=== PATIENT | female | born 1940 | race Caucasian/White ===

== ENCOUNTER 2017-06-23 10:17 | Inpatient (IN) | payer OTHER ==
[2017-06-07 12:04] VITALS: BMI 25.0
--- NOTE | 2017-06-07 12:40 | PAT Medication Instructions ---
Service Date Jun 07, 2017. Current Home Medication List Aspirin (Aspirin Ec), 81 MG PO QPM Bimatoprost (Lumigan), 1 DROPS OP HS Cholecalciferol (Vitamin D3), 1 CAP PO QD@ 1200 Glipizide-Metformin Hcl (Glipizide/Metformin Hcl), 1 TAB PO BID Glipizide-Metformin Hcl (Glipizide/Metformin Hcl), 2 TABS PO QDD Lisinopril/Hctz (Prinzide 20-25MG), 1 TAB PO QDL Melatonin (Melatonin Maximum Strengt), 2 TAB PO HS Naproxen (Aleve), 220 MG PO TID PRN for Pain or Fever Ranitidine (Zantac), 150 MG PO QPM Simvastatin (Zocor), 40 MG PO QPM Vitamins C & E (Vitamin C), 1 CAP PO QF@1200 Medication Instructions For Your Scheduled Surgery - Hold the following medications 48 hours prior to surgery: Glipizide-Metformin Hcl (Glipizide/Metformin Hcl), 1 TAB PO BID Glipizide-Metformin Hcl (Glipizide/Metformin Hcl), 2 TABS PO QDD - Hold the following medications the morning of surgery: Naproxen (Aleve), 220 MG PO TID PRN for Pain or Fever (otherwise okay to continue per surgeon) Lisinopril/Hctz (Prinzide 20-25MG), 1 TAB PO QDL Cholecalciferol (Vitamin D3), 1 CAP PO QD@ 1200 Vitamins C(Vitamin C), 1 CAP PO QF@1200 - Take the following medications as scheduled the night before surgery: Melatonin (Melatonin Maximum Strengt), 2 TAB PO HS Ranitidine (Zantac), 150 MG PO QPM Simvastatin (Zocor), 40 MG PO QPM Aspirin (Aspirin Ec), 81 MG PO QPM Bimatoprost (Lumigan), 1 DROPS OP HS nothing to eat or drink after midnight If you have any questions please call us at [phone] or [phone] or [phone]
--- NOTE | 2017-06-07 13:29 | DIAGNOSTIC IMAGING REPORT ---
CHEST PREADMISSION(PA/LAT) CLINICAL HISTORY: PAT preoperative evaluation COMPARISON STUDY: No previous studies for comparison. FINDINGS: The bones soft tissues and hemidiaphragms are normal. The cardiomediastinal silhouette is normal. The lungs are clear. The pulmonary vasculature is normal. IMPRESSION: Negative chest. The above report was generated using voice recognition software. It may contain grammatical, syntax or spelling errors. Electronically signed by: Lucio Walker M.D. 06/07/2017 1:28 PM Dictated Date/Time: 06/07/2017 1:27 PM
[2017-06-07 13:31] LABS: BASO ABS # 0.08 K/uL (0-0.2); COMPLETE YES; EOS % 2.4 %; HEMATOCRIT 36.8 % (37-47); IG% 0.2 %; LYMPH % 39.4 %; LYMPH ABS # 3.22 K/uL (1.2-3.4); MEAN CELL VOLUME 93.4 fL (80-100); MEAN CORPUSCULAR HGB CONC 34.2 g/dl (32-36); MONO % 7.6 %; NEUT % 49.4 %; PLATELET COUNT 296 K/uL (130-400); RED BLOOD COUNT 3.94 M/uL (4.2-5.4); WHITE BLOOD COUNT 8.18 K/uL (4.8-10.8)
[2017-06-07 13:37] LABS: URINE APPEARANCE CLEAR (CLEAR); URINE BILIRUBIN NEG (NEG); URINE COLOR YELLOW; URINE NITRITE NEG (NEG); URINE PH 7.5 (4.5-7.5); URINE SPECIFIC GRAVITY 1.012 (1.000-1.030); UROBILINOGEN NEG (NEG); ZZUR CULT IF INDIC CLEAN CATCH NO
[2017-06-07 13:39] LABS: MANUAL MICROSCOPIC REQUIRED? NO; REVIEW REQ? NO
[2017-06-07 13:46] LABS: BUN/CREATININE RATIO 26.7 (10-20); CALCIUM 9.6 mg/dl (8.5-10.1); CREATININE 0.66 mg/dl (0.60-1.20); POTASSIUM 4.1 mmol/L (3.5-5.1)
[~2017-06-23] VITALS: Ht 160 cm; Wt 65.2 kg
[2017-06-23] VITALS (7 sets, daily range): BP systolic 112–164; BP diastolic 63–71; PULSE 51–66; TEMP 36.3–36.6; O2SAT 94–100; Ht 160 cm; Wt 65.2 kg
[~2017-06-23 10:17] MED LIST: ASPI81TA28 PO; BIMA0.01 OP; CEFAZOLIN 1000MG/55 ML D5W IV SCH; CHOL2000 PO; GLIP2.5T5 PO; GLIP5TAB4 PO; LACTATED RINGER'S 1000ML 1,000 ML IV SCH; LISI20TA55 PO; MELATAB2 PO; NAPR1TAB9 PO; SIMV40TA2 PO; VITACAP26 PO; ZNTT/150 PO
[2017-06-23] MEDS ORDERED: ONDANSETRON INJ 2 MG/ML 2 ML VIAL IV PRN (11:45)
[2017-06-23] MEDS ORDERED: HYDROmorphone INJ 2 MG/ML SYR/VIAL IV PRN (11:45)
[2017-06-23] MEDS ORDERED: LABETALOL HCL IV 5 MG/ML 20ML IV PRN (11:45)
[2017-06-23] MEDS ORDERED: ATROPINE SULFATE 0.1 MG/ML 5ML SYR IV PRN (11:45)
[2017-06-23] MEDS ORDERED: MIDAZOLAM HCL 1 MG/ML 2ML VIAL ONE (12:25)
[2017-06-23] MEDS ORDERED: FENTANYL CITRATE INJ 50 MCG/1 ML 2 ML VIAL ONE ×4 (12:26→15:00)
--- NOTE | 2017-06-23 12:49 | History & Physical Bridge Note ---
H&P Re-Evaluation Bridge Note: I have examined the patient, reviewed the History & Physical and in the interval since the performance of the History & Physical I have noted the following changes of clinical significance: No changes noted
--- NOTE | 2017-06-23 12:50 | History and Physical ---
History & Physical Date Jun 23, 2017. Chief Complaint Back and bilateral leg pain History of Present Illness The patient is a 77 year old female with complaints of back and leg pain Additional History Hepatic Disease: No Endocrine Disorder: No Kidney Disease: No Hypertension: Yes Heart Disease: No Bleeding Tendencies: No Infectious Diseases: No Allergies Coded Allergies: No Known Allergies (Unverified , 06/23/17) Home Medications Scheduled Aspirin (Aspirin Ec), 81 MG PO QPM Bimatoprost (Lumigan), 1 DROPS OP HS Cholecalciferol (Vitamin D3), 1 CAP PO QD@ 1200 Glipizide-Metformin Hcl (Glipizide/Metformin Hcl), 1 TAB PO BID Glipizide-Metformin Hcl (Glipizide/Metformin Hcl), 2 TABS PO QDD Lisinopril/Hctz (Prinzide 20-25MG), 1 TAB PO QDL Melatonin (Melatonin Maximum Strengt), 2 TAB PO HS Ranitidine (Zantac), 150 MG PO QPM Simvastatin (Zocor), 40 MG PO QPM Vitamins C & E (Vitamin C), 1 CAP PO QF@1200 Scheduled PRN Naproxen (Aleve), 220 MG PO TID PRN for Pain or Fever Physical Examination Skin: warm/dry, no rash Eyes: normal inspection, EOMI, sclerae normal ENT: normal ENT inspection, pharynx normal Head: normocephalic, atraumatic Neck: supple, no adenopathy, trachea midline Respiratory/Chest: lungs clear, normal breath sounds, no respiratory distress Cardiovascular: regular rate, rhythm, no edema, no murmur Abdomen / GI: normal bowel sounds, non tender Back: normal inspection Extremities: normal inspection, normal range of motion Neurologic/Psych: no motor/sensory deficits, alert, normal reflexes, oriented x 3 Diagnosis Lumbar spinal stenosis Plan of Treatment Lumbar decompression and fusion L3 to S1
[2017-06-23] MEDS ORDERED: BUPIVACAINE/EPINEPHRINE 0.5% MPF 1:200,000 30 ML VIAL ONE (13:03)
[2017-06-23] MEDS ORDERED: BACITRACIN 50000 UNIT VIAL ONE (13:03)
[2017-06-23] MEDS ORDERED: HYDROmorphone INJ 2 MG/ML SYR/VIAL ONE ×2 (13:36→15:31)
[2017-06-23] MEDS ORDERED: ROCURONIUM BROMIDE 10 MG/ML 5 ML VIAL IV ONE ×2 (14:07→15:36)
[2017-06-23] MEDS ORDERED: SODIUM CHLORIDE 0.9% 1000ML 1,000 ML IV SCH (15:33)
[2017-06-23] MEDS ORDERED: NEOSTIGMINE METHYLSULFATE 1 MG/ML 10ML VIAL ONE (15:36)
[2017-06-23] MEDS ORDERED: ONDANSETRON INJ 2 MG/ML 2 ML VIAL ONE (15:36)
[2017-06-23] MEDS ORDERED: GLYCOPYRROLATE INJ 0.2 MG/ML VIAL ONE (15:36)
[2017-06-23] MEDS ORDERED: PROPOFOL IV EMULSION 10 MG/ML 20 ML VIAL IV ONE (15:36)
[2017-06-23] MEDS ORDERED: EpHEDrine SULFATE 50MG/5ML SYR ONE (15:36)
[2017-06-23] MEDS ORDERED: LIDOCAINE HCL 2% 2 ML VIAL (20MG/ML) ONE (15:36)
[2017-06-23] MEDS ORDERED: DEXAMETHASONE SOD INJ 4 MG/ML VIAL ONE (15:36)
[2017-06-23] MEDS ORDERED: PHENYLEPHRINE 100MCG/ML 5ML SYR ONE (15:36)
[2017-06-23] MEDS ORDERED: KETOROLAC TROMETHAMINE 30 MG/ML VIAL ONE (15:38)
--- NOTE | 2017-06-23 15:42 | [facility] Operative Report ---
Operative Report Operative Date Jun 23, 2017. Pre-Operative Diagnosis Lumbar Spinal Stenosis Post-Operative Diagnosis Lumbar Spinal Stenosis Procedure(s) Performed #1 lumbar decompression medial facetectomy foraminotomies L3 4 L4 5 L5-S1. #2 posterior spinal fusion L3 4 L4 5 L5-S1. #3 placement of posterior segmental instrumentation L3 4 L4 5 L5-S1. #4 interbody fusion L5-S1. #5 placement peek cage 9 x 22 mm at L5-S1. #6 placement locally harvested size autograft and posterior gutters. #7 placement infuse collagen sponge combined Master graft in the posterior lateral gutters and ostial amp in the interbody space. Surgeon Dr. Kaiser Broom Bundler Surgeon(s) Ajit Gamez PA-C Estimated Blood Loss 225ml Findings Severe spinal stenosis Specimens none per surgeon Description of Procedure Patient was met with preoperatively case discussed all questions addressed. After informed consent was obtained patient was taken to the operative suite underwent intubation placed in prone position on the Nicholas table top Dennis frame. All bony prominences were well-padded and eyes inspected to ensure there is no external pressure placed upon them. This point the lumbar spine was prepped and draped nostril fashion. Sharp dissection with the assistance of Bovie cautery was performed onto an exposing the lamina and transverse processes of L3 L4-L5 and sacral alar bilaterally. From a caudal to cephalad fashion complete laminectomy of L5 4 and L3 was performed addressing severe spinal stenosis. After this complete pedicle screws are placed in L3 L4-L5 and S1 levels bilaterally with assistance of fluoroscopy the purposes yesenia placed. Through a transforaminal port and right a complete discectomy of L5-S1 was performed and plate created to subcortical bleeding bone and a 9 x 22 mm peek cage filled with ostial amp tapped in position. Brought to then locked and final position bilaterally. The transverse processes of L3 L4-L5 and sacral alar burred to subcortical bleeding bone. Infuse collagen sponge mask graft locally harvested morcellized autograft was placed in the posterior lateral gutters. 15 round DAPHNIE drain was inserted. Incision then closed with 1 Vicryl in the fascia 2-0 Vicryl subcutaneous C 4 Monocryl for final skin closure Steri- Strip sterile dressing placed patient we can taken to PACU stable condition. Please note Osito rachel was present throughout the entire procedure involved in patient positioning complex portions of the procedure and final skin closure. I attest to the content of the Intraoperative Record and any orders documented therein. Any exceptions are noted below.
[2017-06-23] MEDS ORDERED: NALOXONE HCL 0.4 MG/1 ML VIAL/CARP IV PRN ×2 (15:45)
[2017-06-23] MEDS ORDERED: FAMOTIDINE 20 MG TAB PO PRN (15:45)
[2017-06-23] MEDS ORDERED: ACETAMINOPHEN 500 MG TAB PO PRN (15:45)
[2017-06-23] MEDS ORDERED: PROMETHAZINE HCL INJ 12.5 MG in SODIUM CHLORIDE 0.9% 50ML 50 ML IV PRN (15:45)
[2017-06-23] MEDS ORDERED: LORAZEPAM 0.5 MG TAB PO PRN (15:45)
[2017-06-23] MEDS ORDERED: METOCLOPRAMIDE HCL INJ 5 MG/ML 2 ML VIAL IV PRN (15:45)
[2017-06-23] MEDS ORDERED: LORAZEPAM INJ 0.5 MG in SYRINGE 0 ML IV PRN (15:45)
[2017-06-23] MEDS ORDERED: BISACODYL 10 MG SUPP PR PRN (15:45)
[2017-06-23] MEDS ORDERED: hydrOXYzine HCL 25 MG TAB PO PRN (15:45)
[2017-06-23] MEDS ORDERED: DO NOT ADMINISTER FLU VACCINE PRN ×3 (15:45)
[2017-06-23] MEDS ORDERED: HYDROmorphone HCL 0.5MG/ML 50 ML CASSETTE IV PRN (15:45)
[2017-06-23] MEDS ORDERED: DO NOT ADMINISTER PNEUMOCOCCAL VACCINE PRN ×2 (15:45)
[2017-06-23] MEDS ORDERED: SOD PHOSPHATE/SOD BIPHOSPHATE ENEMA 132 ML BTL PR PRN (15:45)
[2017-06-23] MEDS ORDERED: ACETAMINOPHEN IV 100 ML IV PRN (15:45)
[2017-06-23] MEDS ORDERED: MAGNESIUM HYDROXIDE SUSP 30 ML UDC PO PRN (15:45)
[2017-06-23] MEDS ORDERED: PHARMACY GLYCEMIC MGMT CONSULT SCH (15:45)
--- NOTE | 2017-06-23 15:47 | DIAGNOSTIC IMAGING REPORT ---
LUMBAR SPINE, INTRAOPERATIVE FLUOROSCOPY HISTORY: L3-S1 decompression and fusion. FLUOROSCOPY TIME: 21 seconds. FINDINGS: Intraoperative fluoroscopy was provided for the lumbar spine. 3 fluoroscopic spot images were obtained. Posterior decompression fusion from L3 through S1 with pedicle screws and rods. The hardware appears intact. IMPRESSION: Fluoroscopy provided for a L3-S1 posterior decompression and fusion. Electronically signed by: Kristian Leblanc M.D. 06/23/2017 3:45 PM Dictated Date/Time: 06/23/2017 3:45 PM
[2017-06-23] MEDS ORDERED: FLOSEAL HEMOSTATIC MATRIX 10ML TOP ONE (15:53)
[2017-06-23] MEDS ORDERED: HYDROmorphone HCL 0.5MG/ML 50 ML CASSETTE ONE (15:57)
--- NOTE | 2017-06-23 16:20 | Anesthesiology Progress Note ---
Anesthesia Post Op Note Date & Time Jun 23, 2017 at 16:20 Vital Signs Pain Intensity: 0 Vital Signs Past 12 Hours Date Time Temp Pulse Resp B/P (MAP) Pulse Ox O2 Delivery O2 Flow Rate FiO2 06/23/17 16:15 57 16 141/60 100 Nasal Cannula 4 06/23/17 16:05 56 16 138/69 99 Oxymask 10 06/23/17 15:55 59 16 135/65 100 Oxymask 10 06/23/17 15:49 36.2 71 16 129/64 98 Oxymask 10 06/23/17 11:32 36.4 56 18 164/69 99 Room Air Notes Mental Status: alert / awake / arousable, participated in evaluation Pt Amnestic to Procedure: Yes Nausea / Vomiting: adequately controlled Pain: adequately controlled Airway Patency, RR, SpO2: stable & adequate BP & HR: stable & adequate Hydration State: stable & adequate Anesthetic Complications: no major complications apparent
[2017-06-23] MEDS ORDERED: GLUCOSE 10 TABS/TUBE PO PRN (17:00)
[2017-06-23] MEDS ORDERED: DEXTROSE 50% 50 ML SYR IV PRN (17:00)
[2017-06-23] MEDS ORDERED: GLUCAGON FOR INJ 1 MG VIAL SQ PRN (17:00)
[2017-06-23] MEDS ORDERED: GLUCOSE 40% GEL 15 GM TUBE PO PRN (17:00)
[2017-06-23] MEDS ORDERED: LORAZEPAM INJ 0.5 MG in SYRINGE 0.75 ML IV PRN (17:15)
[2017-06-23] MEDS ORDERED: INSULIN GLARGINE SOLOSTAR 100 UNITS/ML 3 ML PEN SC STA (17:53)
[2017-06-23] MEDS: SODIUM CHLORIDE 0.9% 1000ML 1,000 ML IV SCH ×2 (19:07→23:54)
[2017-06-23] MEDS: INSULIN ASPART 100 UNITS/ML 3 ML PEN SC SCH ×2 (19:10→20:38)
[2017-06-23] MEDS: CEFAZOLIN IV 1,000 MG in DEXTROSE 5% 50ML 50 ML IV SCH (20:30)
[2017-06-23] MEDS: DEXAMETHASONE INJ 6 MG in SYRINGE 0 ML IV SCH (20:31)
[2017-06-23] MEDS: RANITIDINE HCL 150 MG TAB PO SCH (20:33)
[2017-06-23] MEDS: DOCUSATE SODIUM/SENNA 50/8.6MG TAB PO SCH (20:33)
[2017-06-23] MEDS: ASPIRIN 81 MG ECTAB PO SCH (20:33)
[2017-06-23] MEDS: SIMVASTATIN 40 MG TAB PO SCH (20:33)
--- NOTE | 2017-06-23 22:23 | Pharmacy Progress Note ---
Glycemic Control Intl Consult Date of Service Jun 23, 2017. Scope Glycemic Pharmacist consulted by Dr Kaiser on 06/23/17 for glycemic control and to write orders per [facility] inpatient glycemic control protocol Objective Weight (Kilograms): 65.200 Accuchecks BSG (last 24hrs): Test 06/23/17 11:34 06/23/17 16:03 06/23/17 17:01 06/23/17 20:25 Bedside Glucose 132 mg/dl (70-90) 161 mg/dl (70-90) 180 mg/dl (70-90) 159 mg/dl (70-90) Recent Pertinent Medications Outpatient Anti-diabetic Regimen: * Glipizide/Metformin (strength unclear) 1 tablet with breakfast and lunch, 2 tablets with supper * A1c = pending 06/24/17 The patient is currently receiving: * Basal insulin: none * Correctional Insulin: none * Prandial insulin: none * Oral Agents: none Risk Factors for Insulin Resistance: * Steroids: dexamethasone 12 mg in OR, then 6 mg q8h x 3 doses * Infection: on cefazolin perioperatively * Pressors: no * IVF: NS @ 150 ml/hr * Recent Surgery: OR today spinal surgery * Diet: npo advancing to type 2 diabetic * Mechanical Ventilation: no Assessment & Plan ASSESSMENT: * ADA & AACE recommend a goal blood sugar range 140-180 mg/dl for the majority of critically ill & non-critically ill patients. However, more stringent targets may be selected in individual cases. * 77 yo type 2 diabetic S/P spinal surgery. A1c pending to assess recent glycemic control. BSG's expected to rise due to steroid and stress of surgery. Will start basal-bolus insulin based on weight and high stress, and reassess in am. Will need to taper down insulin as steroid effect wears off. PLAN FOR INPATIENT GLYCEMIC CONTROL: * Holding outpatient oral diabetes medications * Basal insulin with LANTUS 16 units SQ tonight, then BID (dose based on BSG's) * Correctional Insulin with NOVOLOG per scale ACHS or Q6hrs while NPO * Goal Range: Low 110 mg/dL - High 150 mg/dL * Correction Factor: 25 mg/dL/unit * Nutritional / Prandial insulin per carb ratio of 1 unit per 8 grams CHO consumed * Please note that the plan above was derived based on current level of insulin resistance and hospital stress. These recommendations are appropriate for inpatient admission only. Plan of care upon discharge will need to be reassessed to avoid potential outpatient hypo/hyperglycemia. Thank you.
[2017-06-24 03:16] VITALS: BP 118/72; PULSE 80; TEMP 36.6; O2SAT 93
[2017-06-24] MEDS: DEXAMETHASONE INJ 6 MG in SYRINGE 0 ML IV SCH ×2 (03:28→12:08)
[2017-06-24] MEDS: CEFAZOLIN IV 1,000 MG in DEXTROSE 5% 50ML 50 ML IV SCH (03:28)
[2017-06-24] MEDS ORDERED: NURSING VERBAL MED ORDER ONE (06:00)
[2017-06-24] MEDS ORDERED: HYDROmorphone INJ 0.5 MG/0.5 ML SYR IV PRN (06:00)
[2017-06-24] MEDS ORDERED: DC PCA SCH (06:00)
[2017-06-24 06:27] LABS: BUN/CREATININE RATIO 25.6 (10-20); CALCIUM 7.9 mg/dl (8.5-10.1); CREATININE 0.53 mg/dl (0.60-1.20); POTASSIUM 4.1 mmol/L (3.5-5.1)
[2017-06-24 06:36] LABS: COMPLETE YES; IG% 0.3 %; LYMPH % 12.4 %; LYMPH ABS # 1.46 K/uL (1.2-3.4); MEAN CELL VOLUME 92.6 fL (80-100); MEAN CORPUSCULAR HEMOGLOBIN 32.1 pg (25-34); MEAN CORPUSCULAR HGB CONC 34.7 g/dl (32-36); MEAN PLATELET VOLUME 11.2 fL (7.4-10.4); MONO % 2.8 %; NEUT % 84.5 %; PLATELET COUNT 262 K/uL (130-400); RED BLOOD COUNT 3.24 M/uL (4.2-5.4); WHITE BLOOD COUNT 11.74 K/uL (4.8-10.8)
[2017-06-24 07:04] VITALS: BP 122/71; PULSE 59; TEMP 36.8; O2SAT 92
[2017-06-24] MEDS: ONDANSETRON INJ 2 MG/ML 2 ML VIAL IV PRN ×2 (07:34→17:29)
[2017-06-24] MEDS ORDERED: INSULIN GLARGINE SOLOSTAR 100 UNITS/ML 3 ML PEN SC SCH (09:00)
[2017-06-24] MEDS: OXYCODONE HCL IR 5 MG TAB (IMMEDIATE RELEASE) PO PRN ×3 (09:10→17:30)
[2017-06-24] MEDS: INSULIN ASPART 100 UNITS/ML 3 ML PEN SC SCH ×4 (09:13→21:02)
[2017-06-24] MEDS ORDERED: RXC5 PO (10:08)
--- NOTE | 2017-06-24 10:09 | Discharge Instructions ---
Discharge Instructions Date of Service Jun 24, 2017. Admission Reason for Admission: Lumbar Spinal Stenosis Discharge Discharge Diagnosis / Problem: lumbar stenosis Discharge Goals Goal(s): Improve function Activity Recommendations Activity Limitations: per Instructions/Follow-up section . Instructions / Follow-Up Instructions / Follow-Up ACTIVITY RECOMMENDATIONS: SELF CARE INSTRUCTIONS AFTER THORACIC/LUMBAR FUSIONS 1. You may walk to your tolerance. It is good exercise for your legs and back. Expect some back and intermittent leg aches and pains. 2. You may perform "counter-top" level activities (make a sandwich, shara with a project, etc.). 3. No bending or lifting of more than 10 pounds or back twisting of any nature (roll like a log when turning in bed). 4. You may ride in a car for 20-30 minutes at a time. No driving until after your first visit with your doctor. 5. Frequent changes of position and restricting sitting to 30 minutes at a time will help limit the amount of back spasms and stiffness you may experience. 6. You may discontinue the use of ambulatory aids (cane, crutches, etc.) once your strength and confidence allow. 7. You may clinical operations consultant the shower and let water strike your incision when you arrive home at least once daily. Do not take a tub bath, sit in a hot tub or go into a swimming pool until after your first recheck in the office. SPECIAL CARE INSTRUCTIONS: VERY IMPORTANT TO READ AND REVIEW A. Your surgical incision has been closed with a cosmetic suture under the skin that will dissolve in about 6 weeks. In 14 days, you can use a pair of clean scissors and cut the suture that is left outside of the skin at the ends of your incision. 1. The small skin tapes can be removed 7 days after surgery if they have not fallen off by that point. 2. You may keep the wound open to air as much as possible to promote healing after post-op day number 5 unless told otherwise by your doctor. 3. If you think the wound looks like it is becoming infected (redness or worsening drainage) and/or you are experiencing fever, chill or worsening back pain and muscle spasms, contact the office so that we may evaluate you as soon as possible. B. Complications are uncommon, but please contact us if you have any signs or symptoms of: 1. wound infection (fever higher than 102.5 degrees F, redness, separation of wound, drainage, or increasing pain from the incision) 2. blood clots in legs (pain, swelling, redness and warmth in legs) 3. urinary tract infection (fever higher than 102.5 degrees F, burning upon urination or increased frequency of urination) 4. nerve problems (inability to walk on your toes or heels, numbness, loss of bowel or bladder control) 5. any other symptoms that concern you C. Please call the office at if you have any concerns or questions about your operation or recovery. D. No smoking! Smoking drastically decreases the chance of a solid fusion. E. Do not take any anti-inflammatory medications (Indocin, Advil, Motrin, Aspirin, Naprosyn, etc.) as these may inhibit the chance of a solid fusion. Tylenol is okay to take for pain. MANAGING PAIN AFTER SPINAL SURGERY 1. Narcotic medication is intended for short-term use and will be provided for surgical pain. Surgical pain usually lasts for a period of 4-6 weeks. Narcotic medication includes Percocet, Vicodin, Darvocet, Tylenol #3 or Lortab. 2. Longer-term pain is more appropriately treated with non-narcotic medication such as Tylenol ES. 3. Muscle spasm is not appropriately treated with narcotics. Muscle relaxers such as Soma, Flexeril or Skelaxin can be used along with Tylenol ES. 4. Remember that we all live with some "aches and pains". This is not unusual or uncommon after an injury or as we get older. a. Back pain is expected and may include muscle spasms for 4 to 6 weeks after surgery. The pain should gradually improve. If the pain worsens for no apparent reason, please contact the office. b. Intermittent leg pain may also be experienced and should not be concerned about unless it worsens for no apparent reason. If so, please contact the office. 5. We will provide appropriate medication within the normal guidelines of their prescribed use. We will also be very cautious and aware of potential abuse and extended duration of patients' medication needs. a. Pain medications are for your comfort and to assist with sleep and rest so that the tissue can heal. They are not provided in order to return to normal activity and should not be used through the day. To do so or worsening pain at night can result from ongoing tissue damage and development of tolerance to the prescribed medicine. 6. Please allow 2-3 days to process refills. Prescriptions will not be mailed but must be picked up at the office. FOLLOW UP VISIT: Keep your scheduled follow-up appointment. Any questions, please call the office at . Current Hospital Diet Patient's current hospital diet: Diabetes Type 2 Diet Discharge Diet Recommended Diet: Regular Diet Procedures Procedures Performed: #1 lumbar decompression medial facetectomy foraminotomies L3 4 L4 5 L5-S1. #2 posterior spinal fusion L3 4 L4 5 L5-S1. #3 placement of posterior segmental instrumentation L3 4 L4 5 L5-S1. #4 interbody fusion L5-S1. #5 placement peek cage 9 x 22 mm at L5-S1. #6 placement locally harvested size autograft and posterior gutters. #7 placement infuse collagen sponge combined Master graft in the posterior lateral gutters and ostial amp in the interbody space. Pending Studies Studies pending at discharge: no Laboratory Results Hemoglobin A1c Test 06/24/17 05:26 Range/Units Estimated Average Glucose 134 mg/dl Hemoglobin A1c 6.3 H 4.5-5.6 % Medical Emergencies . Who to Call and When: Medical Emergencies: If at any time you feel your situation is an emergency, please call 911 immediately. . Non-Emergent Contact Non-Emergency issues call your: Primary Care Provider . "Provider Documentation" section prepared by Navarro Kaiser. . VTE Core Measure Inpt VTE Proph given/why not?: Masood Carvalho, FELICITA's
--- NOTE | 2017-06-24 10:45 | Progress Note ---
Progress Note Date of Service Jun 24, 2017. Progress Note Patient's pain is well-controlled. Leg symptoms are markedly improved. I'll signs stable. DAPHNIE drain decreasing appropriately. On exam she has in bleeding well has good strength testing. Assessment status post multilevel lumbar decompression fusion. Planned this time will continue with physical therapy advance her bowel regiment anticipate home the next few days.
[2017-06-24] MEDS: LISINOPRIL/HCTZ 20/25MG TAB PO SCH (12:07)
[2017-06-24 15:11] VITALS: BP 120/70; PULSE 60; TEMP 36.6; O2SAT 96
[2017-06-24] MEDS: SIMVASTATIN 40 MG TAB PO SCH (20:58)
[2017-06-24] MEDS: DOCUSATE SODIUM/SENNA 50/8.6MG TAB PO SCH (20:58)
[2017-06-24] MEDS: RANITIDINE HCL 150 MG TAB PO SCH (20:58)
[2017-06-24] MEDS: ASPIRIN 81 MG ECTAB PO SCH (20:58)
[2017-06-24 23:08] VITALS: BP 131/74; PULSE 68; TEMP 36.5; O2SAT 92
[2017-06-25] MEDS: POLYETHYLENE (MIRALAX) 17 GM PACK PO SCH ×4 (04:55→23:53)
[2017-06-25 06:34] VITALS: BP 137/72; PULSE 67; TEMP 36.7; O2SAT 96
[2017-06-25] MEDS: OXYCODONE HCL IR 5 MG TAB (IMMEDIATE RELEASE) PO PRN ×3 (07:30→21:22)
[2017-06-25] MEDS: INSULIN ASPART 100 UNITS/ML 3 ML PEN SC SCH ×4 (07:38→21:16)
--- NOTE | 2017-06-25 07:54 | Orthopedic Progress Note ---
Orthopedic Progress Note Date of Service Jun 25, 2017. Subjective Post OP Day: 2 Reports: feeling well Additional Notes: Postoperative D2 lumbar decompression with fusion L3 to S1. She's doing well. No radicular leg pain. He pain is controlled. DAPHNIE drain output last shift was 70 mL. in physical therapy she is ambulating roughly 350 feet. She is passing flatus but no bowel movement yet. Objective calves soft nontender, N/V intact, dressing C/D/I, A&O x3, toes mobile She is sitting in a chair in no obvious distress. Lower extremities Intact. Calves are soft and nontender bilaterally. Date Time Temp Pulse Resp B/P (MAP) Pulse Ox O2 Delivery O2 Flow Rate FiO2 06/25/17 06:34 36.7 67 18 137/72 (93) 96 Room Air 06/24/17 23:15 Room Air 06/24/17 23:08 36.5 68 18 131/74 (93) 92 Room Air 06/24/17 15:25 Room Air 06/24/17 15:11 36.6 60 16 120/70 (87) 96 Room Air Assessment & Plan Assessment: Assessment: Postoperative day 2 lumbar decompression and instrumented fusion L3 through S1 Plan: Maintain DAPHNIE drain dressing. Continue with physical therapy. DVT prophylaxis in the form of teds and SCDs. Continue aggressive bowel regimen. Anticipate discharge home tomorrow
[2017-06-25] MEDS ORDERED: SOD PHOSPHATE/SOD BIPHOSPHATE ENEMA 132 ML BTL PR PRN (08:15)
[2017-06-25] MEDS: ONDANSETRON INJ 2 MG/ML 2 ML VIAL IV PRN (11:51)
[2017-06-25] MEDS: LISINOPRIL/HCTZ 20/25MG TAB PO SCH (11:52)
--- NOTE | 2017-06-25 14:03 | Pharmacy Progress Note ---
Glycemic: Assessment & Plan Date of Service Jun 25, 2017. Assessment & Plan Blood sugars at goal, IV steroids completed, will loosen CF and CR to prevent hypoglycemia. No further Lantus needed. Anticipated discharge to home tomorrow. A1c = 6.3%, no change in home regimen needed. Test 06/24/17 16:59 06/24/17 20:40 06/25/17 06:23 06/25/17 12:47 Bedside Glucose 153 mg/dl (70-90) 153 mg/dl (70-90) 166 mg/dl (70-90) 133 mg/dl (70-90) * Correctional Insulin: Novolog Correction per scale ACHS Goal Range: Low 110 mg/dL - High 140 mg/dL Correction Factor: 35 mg/dL/unit * Prandial insulin: Per carb ratio of 1 unit per 12 grams CHO consumed Pharmacy will continue to monitor patient daily and write orders per [facility] inpatient glycemic control protocol. Thanks. * Please note that the plan above was derived based on current level of insulin resistance and hospital stress. These recommendations are appropriate for inpatient admission only. Plan of care upon discharge will need to be reassessed to avoid potential outpatient hypo/hyperglycemia.
[2017-06-25 15:07] VITALS: BP 133/77; PULSE 49; TEMP 36.3; O2SAT 97
[2017-06-25] MEDS: RANITIDINE HCL 150 MG TAB PO SCH (21:11)
[2017-06-25] MEDS: SIMVASTATIN 40 MG TAB PO SCH (21:12)
[2017-06-25] MEDS: DOCUSATE SODIUM/SENNA 50/8.6MG TAB PO SCH (21:12)
[2017-06-25] MEDS: ASPIRIN 81 MG ECTAB PO SCH (21:12)
[2017-06-25 22:48] VITALS: BP 114/71; PULSE 61; TEMP 36.6; O2SAT 97
[2017-06-25] MEDS ORDERED: NURSING VERBAL MED ORDER ONE (23:00)
[2017-06-26 06:36] VITALS: BP 144/76; PULSE 60; TEMP 36.7; O2SAT 97
[2017-06-26] MEDS: ALUMINUM/MAGNESIUM SUSP 30 ML UDC PO PRN ×2 (07:07→12:28)
[2017-06-26] MEDS: OXYCODONE HCL IR 5 MG TAB (IMMEDIATE RELEASE) PO PRN ×2 (07:08→12:27)
[2017-06-26] MEDS: INSULIN ASPART 100 UNITS/ML 3 ML PEN SC SCH ×2 (08:10→12:00)
--- NOTE | 2017-06-26 08:14 | Anesthesiology Progress Note ---
Anesthesia Post Op Note Date & Time Jun 26, 2017 at 08:14 Vital Signs Vital Signs Past 12 Hours Date Time Temp Pulse Resp B/P (MAP) Pulse Ox O2 Delivery O2 Flow Rate FiO2 06/26/17 07:15 Room Air 06/26/17 06:36 36.7 60 16 144/76 (98) 97 Room Air 06/25/17 23:34 Room Air 06/25/17 22:48 36.6 61 16 114/71 (85) 97 Room Air Notes Mental Status: alert / awake / arousable, participated in evaluation Pt Amnestic to Procedure: Yes Nausea / Vomiting: adequately controlled Pain: adequately controlled Airway Patency, RR, SpO2: stable & adequate BP & HR: stable & adequate Hydration State: stable & adequate Anesthetic Complications: no major complications apparent
[2017-06-26] MEDS: METFORMIN HCL 500 MG TAB PO SCH ×2 (09:29→12:24)
[2017-06-26 12:21] VITALS: BP 144/76; PULSE 60; TEMP 36.7; O2SAT 97
[2017-06-26] MEDS: LISINOPRIL/HCTZ 20/25MG TAB PO SCH (12:24)
--- NOTE | 2017-06-26 15:11 | Discharge Summary ---
Orthopedic Discharge Summary Admission Date/Reason Jun 23, 2017 at 15:36 Lumbar Spinal Stenosis. Discharge Date/Disposition Jun 26, 2017 Home Diagnosis Principal Diagnosis: Lumbar spinal stenosis Admission Physical Exam As per Admitting History & Physical. Hospital Course Patient underwent multilevel lumbar decompression fusion. Postoperatively her leg symptoms are markedly improved. She is up and amatory postop day 1.. Back pain well controlled. Subsequently on postoperative day #3 she was discharged home. Discharge orders and instructions can be found the chart for further review. Discharge Instructions Please refer to the electronic Patient Visit Report (Discharge Instructions) for additional information.
[2017-06-26] MEDS ORDERED: METFORMIN HCL 500 MG TAB PO SCH (17:45)
== END 2017-06-26 13:45 | disposition home or self-care (01) | DRG 460 ==
LOC: C.ACU 10:17 → C.3E 15:36 → ENRESERV 16:22
PROVIDERS: ADMIT Orthopaedic Surgery Orthopaedic Surgery of the Spine; ATTEND Orthopaedic Surgery Orthopaedic Surgery of the Spine
PROC: 0SG10J1 Fusion of 2 or more Lumbar Vertebral Joints with Synthetic Substitute, Posterior Approach, Posterior Column, Open Approach (ICD-10-PCS; principal; 2017-06-23 12:15)
PROC: 0ST20ZZ Resection of Lumbar Vertebral Disc, Open Approach (ICD-10-PCS; principal; 2017-06-23 12:15)
DX: M48.061 Spinal stenosis, lumbar region without neurogenic claudication (principal); Z79.82 Long term (current) use of aspirin

== ENCOUNTER 2021-11-12 16:16 | Observation (INO) ==
[2021-11-12 17:05] LABS: Appearance Urine Turbid (Clear); Bacteria Urine Automated Negative (Negative); Blood Urine 3+ (Negative); Color Urine Orange; Epithelial Cell Urine Auto >30 /lpf (0-5); Glucose Urine UA Negative (Negative); Ketones Urine Trace (Negative); Leukocyte Esterase Urine 1+ (Negative); Nitrite Urine Negative (Negative); Protein Urine 2+ (Negative); RBC Urine Automated >30 /hpf (0-4); Specific Gravity Urine 1.025 (1.000-1.030); Urobilinogen Urine Negative (Negative); pH Urine 5.5 (4.5-7.5)
[2021-11-12 17:05] LABS: Basophils # (auto) 0.05 K/uL (0-0.2); Basophils % (auto) 0.3 %; Eosinophils % (auto) 0.7 %; Hematocrit (blood only) 37.2 % (37-47); Hemoglobin 12.5 g/dL (12.0-16.0); Immature Granulocytes # (auto) 0.04 K/uL (0.00-0.02); Immature Granulocytes % (auto) 0.3 %; Lymphocytes % (auto) 20.4 %; Mean Corpuscular Hemoglobin 32.7 pg (25-34); Mean Corpuscular Hgb Conc 33.6 g/dL (32-36); Mean Corpuscular Volume 97.4 fL (80-100); Mean Platelet Volume 11.4 fL (7.4-10.4); Monocytes # (auto) 1.14 K/uL (0.11-0.59); Monocytes % (auto) 7.5 %; Neutrophils # (auto) 10.73 K/uL (1.4-6.5); Neutrophils % (auto) 70.8 %; Platelet Count 305 K/uL (130-400); RDW Coefficient of Variation 12.3 % (11.5-14.5); RDW Standard Deviation 43.8 fL (36.4-46.3); Red Blood Count 3.82 M/uL (4.2-5.4); White Blood Count 15.16 K/uL (4.8-10.8)
[2021-11-12 17:09] LABS: Bilirubin Urine 1+ (Negative)
[2021-11-12 17:28] LABS: Albumin Globulin Ratio 1.5 (0.9-2); Albumin Level 4.3 gm/dl (3.4-5.0); BUN Creatinine Ratio 23.3 (10-20); Bilirubin,Total 0.4 mg/dl (0.2-1.0); Calcium 9.4 mg/dl (8.5-10.1); Creatinine Clr Calc Pharmacy 44.3 ml/min; Est GFR (African American) 73.4 ml/min; Est GFR (Non-African American) 63.4 ml/min; Globulin 2.8 gm/dl (2.5-4.0); Potassium 4.1 mmol/L (3.5-5.1); Total Protein 7.1 gm/dl (6.0-8.3)
[2021-11-12] MEDS ORDERED: SODIUM CHLORIDE 0.9% 1000ML 1,000 ML IV ONE (17:29)
--- NOTE | 2021-11-12 17:32 | Emergency Department Note ---
Impression & Plan Kidney stone on left side ADMIT ED Provider Note HPI: The patient is an 81-year-old female who presents the emergency department with a chief complaint of left flank pain that she has been experiencing since she woke up this morning.Patient states pain has been relatively persistent throughout the day, she states that currently at the time she arrived to the ED her pain is manageable. Patient denies any pain with urination, denies any nausea or vomiting, overall on presentation she is hemodynamically stable, she is in no acute distress on my initial evaluation. ROS: - : Left flank pain *10 point review systems was conducted and is otherwise negative unless stated above *Outpatient medications and allergy history reviewed PE: General: Alert, NAD HEENT: Normocephalic, atraumatic Eyes: Extraocular eye movement is intact, no scleral erythema Pulmonary: Clear to auscultation bilaterally, no wheezing Cardio: Regular rate and rhythm GI: Abdomen is soft, nontender : No suprapubic tenderness, There is left flank tenderness to palpation MSK: No evidence of trauma or malformation of the extremities, no edema Skin: No evidence of rash Neuro: Alert, no focal deficits 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 Urinalysis is questionable for infection, will send for culture, patient was treated with ceftriaxone here in the ED as well as morphine and Toradol for pain. Renal function is intact.Patient is noted to have a leukocytosis greater than 15,000. I discussed the above findings with on-call urology, Dr. Rouse, who is in agreement that the patient at this time should be admitted for IV antibiotic therapy and urology consultation. I discussed the case with the on-call hospitalist for [facility], Dr. Livingston, and the patient was admitted in stable condition for further care. Patient was in agreement to the above plan. Diagnosis: 1.Kidney stone with hydronephrosis, Left-sided, with obstruction 2.Urinary tract infection 3. Acute flank pain, left-sided Disposition: Admission Lucio Ortiz DO Emergency Medicine Past Med/Surg History Social History Smoking Status: Never smoker Allergies Allergies Allergy/AdvReac Type Severity Reaction Status Date / Time No Known Allergies Allergy Unverified 06/23/17 11:27 Home Meds Home Medications Medication Instructions Recorded Confirmed ASPIRIN (ASPIRIN EC) 81 mg PO QPM #0 06/07/17 BIMATOPROST (LUMIGAN) 1 drp OPHTHALMIC (EYE) HS 30 Days 06/07/17 #2.5 ml CHOLECALCIFEROL (VITAMIN D3) 1 cap PO QD@ 1200 30 Days #0 cap 06/07/17 GLIPIZIDE-METFORMIN HCL 1 tab PO BID #0 06/07/17 (GLIPIZIDE/METFORMIN HCL) GLIPIZIDE-METFORMIN HCL 2 tabs PO QDD #0 06/07/17 (GLIPIZIDE/METFORMIN HCL) Lisinopril/Hctz (Prinzide 20-25MG) 1 tab PO QDL #0 tab 06/07/17 MELATONIN (MELATONIN MAXIMUM 2 tab PO HS 30 Days #30 tab 06/07/17 STRENGT) Ranitidine (Zantac) 150 mg PO QPM #0 tab 06/07/17 Simvastatin (Zocor) 40 mg PO QPM #0 tab 06/07/17 VITAMINS C & E (VITAMIN C) 1 cap PO QF@1200 #0 06/07/17 Previous Rx's Medication Instructions Recorded Oxycodone HCl 5 - 10 mg PO Q4H PRN 30 Days #60 06/24/17 tab Results & Data (ED) Vital Signs Vital Signs - 24 hr 11/12/21 16:33 11/12/21 18:17 Temperature 36.7 C Temperature Source Skin Pulse Rate 77 Pulse Rate [Left] 70 Pulse Rhythm Regular Pulse Rhythm [Left] Regular Pulse Strength Normal Pulse Strength [Left] Normal Respiratory Rate 20 20 Respiratory Effort / Characteristics Non-Labored Spontaneous Non-Labored Respiratory Depth Normal Normal Respiratory Pattern Regular Blood Pressure 165/73 H Blood Pressure [Left Arm] 132/70 Blood Pressure Mean 103 Blood Pressure Mean [Left Arm] 90 Blood Pressure Position [Left Arm] Lying Pulse Oximetry 99 98 Oxygen Delivery Method Room Air Room Air Sepsis Recent Fever Within 48 Hours No Sepsis New/Unexplained Change in Mental Status N/A Sepsis Action Taken by Nursing No Action Required Laboratory Data Result diagrams: 11/12/21 16:49 11/12/21 16:49 Lab Results 11/12/21 11/12/21 11/12/21 Range/Units 16:49 16:49 16:52 WBC 15.16 H (4.8-10.8) K/uL RBC 3.82 L (4.2-5.4) M/uL Hgb 12.5 (12.0-16.0) g/dL Hct 37.2 (37-47) % MCV 97.4 (80-100) fL MCH 32.7 (25-34) pg MCHC 33.6 (32-36) g/dL RDW Std Deviation 43.8 (36.4-46.3) fL RDW Coeff of Loly 12.3 (11.5-14.5) % Plt Count 305 (130-400) K/uL MPV 11.4 H (7.4-10.4) fL Immature Gran % (Auto) 0.3 % Neut % (Auto) 70.8 % Lymph % (Auto) 20.4 % [place] % (Auto) 7.5 % Eos % (Auto) 0.7 % Baso % (Auto) 0.3 % Neut # (Auto) 10.73 H (1.4-6.5) K/uL Lymph # (Auto) 3.10 (1.2-3.4) K/uL Newton # (Auto) 1.14 H (0.11-0.59) K/uL Eos # (Auto) 0.10 (0-0.5) K/uL Baso # (Auto) 0.05 (0-0.2) K/uL Immature Gran # (Auto) 0.04 H (0.00-0.02) K/uL Sodium 137 (136-145) mmol/L Potassium 4.1 (3.5-5.1) mmol/L Chloride 100 (98-107) mmol/L Carbon Dioxide 27 (21-32) mmol/L Anion Gap 10 (3-11) BUN 20 (6-23) mg/dl Creatinine 0.86 (0.6-1.2) mg/dl Est Cr Clr Drug Dosing 44.3 ml/min Est GFR ( Amer) 73.4 ml/min Est GFR (Non-Af Amer) 63.4 ml/min BUN/Creatinine Ratio 23.3 H (10-20) Glucose 99 (70-99(Fasting)) mg/dl Calcium 9.4 (8.5-10.1) mg/dl Total Bilirubin 0.4 (0.2-1.0) mg/dl AST 15 (13-39) U/L ALT 13 (7-52) U/L Alkaline Phosphatase 70 (34-104) U/L Total Protein 7.1 (6.0-8.3) gm/dl Albumin 4.3 (3.4-5.0) gm/dl Globulin 2.8 (2.5-4.0) gm/dl Albumin/Globulin Ratio 1.5 (0.9-2) Lipase 33 (11-82) U/L Urine Color [place] Urine Appearance Turbid A (Clear) Urine pH 5.5 (4.5-7.5) Ur Specific [place] 1.025 (1.000-1.030) Urine Protein 2+ H (Negative) Urine Glucose (UA) Negative (Negative) Urine Ketones Trace H (Negative) Urine Blood 3+ H (Negative) Urine Nitrite Negative (Negative) Urine Bilirubin 1+ H (Negative) Urine Urobilinogen Negative (Negative) Ur Leukocyte Esterase 1+ H (Negative) Urine WBC (Auto) 10-30 H (0-5) /hpf Urine RBC (Auto) >30 H (0-4) /hpf U Hyaline Cast (Auto) 1-5 (0-5) /lpf U Epithel Cells (Auto) >30 H (0-5) /lpf Urine Bacteria (Auto) Negative (Negative) Administered Medications Discontinued Medications Sodium Chloride (Nss 1000ml) 1,000 mls @ 999 mls/hr IV .Q1H1M ONE Stop: 11/12/21 18:29 Last Infusion: 11/12/21 19:15 Dose: 0 mls/hr Documented by: [id number] Admin: 11/12/21 18:10 Dose: 999 mls/hr Documented by: [id number] Ceftriaxone Sodium (Rocephin) 1,000 mg in 50 mls @ 100 mls/hr IV NOW STA Stop: 11/12/21 18:56 Last Infusion: 11/12/21 19:15 Dose: 0 mls/hr Documented by: [id number] Admin: 11/12/21 18:38 Dose: 100 mls/hr Documented by: [id number] Ketorolac Tromethamine (Ketorolac Tromethamine 15 Mg/Ml Vial) 10 mg IV NOW ONE Stop: 11/12/21 18:39 Last Admin: 11/12/21 18:44 Dose: 10 mg Documented by: [id number] Morphine Sulfate (Morphine Sulfate 4 Mg/Ml 1 Ml Carp\Vial) 4 mg IV NOW STA Stop: 11/12/21 18:39 Last Admin: 11/12/21 18:44 Dose: 4 mg Documented by: [id number] Imaging Data Radiologist's Impression: Abdomen/Pelvis CT 11/12/21 17:[address] WITHOUT CONTRAST CT DOSE: 262.67 mGy.cm HISTORY: Left flank pain. TECHNIQUE: Multiaxial CT images of the abdomen and pelvis were performed without contrast. A dose lowering technique was utilized adhering to the principles of ALARA. COMPARISON STUDY: None. FINDINGS: Posterior decompression fusion from L3 through S1 with pedicle screws and rods. A few bibasilar linear densities consistent with subsegmental atelectasis or scarring. Otherwise, the lung bases are clear. No pneumoperitoneum. No pneumatosis. No acute fractures within the visualized osse ous structures. Asymmetric lobular densities within the left breast. Dominant lobulated density on image 19 measures 2 cm. The unenhanced liver, adrenal glands, gallbladder, and pancreas unremarkable. Punctate calcified granuloma within the spleen. Normal right kidney. No renal calculi identified. There is mild left hydroureteronephrosis secondary to an obstructing 4 mm stone within the mid left ureter best seen on image 170. The bladder is decompressed and not well visualized. No pelvic free fluid. Mild presacral edema. Suboptimal evaluation for bowel pathology due to the lack of intravenous and oral contrast. However, there is no definite bowel wall thickening or obstruction. Questionable thickening of the rectum is likely due to underdistention. IMPRESSION: 1. A 4 mm obstructing stone within the mid left ureter resulting in mild left hydronephrosis. 2. Asymmetric lobular densities within the left breast measuring up to 2 cm. Follow-up nonemergent mammogram/ultrasound at a dedicated breast cancer Center is recommended to exclude the possibility of a developing breast lesion. 3. Questionable thickening of the rectum is likely due to underdistention. There is mild presacral/perirectal edema. A low-grade proctitis could also a similar appearance. ACT 112: Positive. There are findings on this exam that require communication between the performing entity and the patient following Patient Test Result Information Act ([place] Act 112) guidelines. Electronically signed by: Kristian Leblanc M.D. 11/12/2021 6:08 PM Discharge Plan Visit Data Chief Complaint: Abdominal Pain Stated Complaint: LOWER PAIN IN LT SIDE OF ABD, AND LOWER BACK ED Provider: Lucio Ortiz Discharge Problem: Kidney stone on left side Forms Stand Alone Forms: [facility] Referrals Referrals: Gustavo Corbett [Primary Care Provider] -
--- NOTE | 2021-11-12 18:09 | CT Scan Report ---
ABDOMEN AND PELVIS CT WITHOUT CONTRAST CT DOSE: 262.67 mGy.cm HISTORY: Left flank pain. TECHNIQUE: Multiaxial CT images of the abdomen and pelvis were performed without contrast. A dose lo wering technique was utilized adhering to the principles of ALARA. COMPARISON STUDY: None. FINDINGS: Posterior decompression fusion from L3 through S1 with pedicle screws and rods. A few bibas ilar linear densities consistent with subsegmental atelectasis or scarring. Otherwise, the lung bases are clear. No pneumoperitoneum. No pneumatosis. No acute fractures within the visualized osseous str uctures. Asymmetric lobular densities within the left breast. Dominant lobulated density on image 19 measures 2 cm. The unenhanced liver, adrenal glands, gallbladder, and pancreas unremarkable. Punctate calcified granuloma within the spleen. Normal right kidney. No renal calculi identified. There is mi ld left hydroureteronephrosis secondary to an obstructing 4 mm stone within the mid left ureter best seen on image 170. The bladder is decompressed and not well visualized. No pelvic free fluid. Mild pr esacral edema. Suboptimal evaluation for bowel pathology due to the lack of intravenous and oral cont rast. However, there is no definite bowel wall thickening or obstruction. Questionable thickening of the rectum is likely due to underdistention. IMPRESSION: 1. A 4 mm obstructing stone within the mid left ureter resulting in mild left hydronephrosis. 2. Asymmetric lobular densities within the left breast measuring up to 2 cm. Follow-up nonemergent ma mmogram/ultrasound at a dedicated breast cancer Center is recommended to exclude the possibility of a developing breast lesion. 3. Questionable thickening of the rectum is likely due to underdistention. There is mild presacral/pe rirectal edema. A low-grade proctitis could also a similar appearance. ACT 112: Positive. There are findings on this exam that require communication between the performing entity and the patient following Patient Test Result Information Act ([place] Act 112) guidelines. Electronically signed by: Kristian Leblanc M.D. 11/12/2021 6:08 PM
[2021-11-12] MEDS ORDERED: cefTRIAXone SODIUM 1,000 MG/50 ML BAG IV STA (18:27)
[2021-11-12] MEDS ORDERED: MoRPHine SULFATE 4 MG/ML 1 ML CARP\\VIAL IV STA (18:38)
[2021-11-12] MEDS ORDERED: KETOROLAC TROMETHAMINE 15 MG/ML VIAL IV ONE (18:38)
[2021-11-12] MEDS ORDERED: TAMSULOSIN HCL 0.4 MG CAP PO ONE (19:27)
--- NOTE | 2021-11-12 19:58 | History & Physical Report ---
Date of Service November 12, 2021 Assessment & Plan (1) Kidney stone on left side: Plan: Obstructive uropathy secondary to above No sepsis for now hypertension, stable DM2 on oral medications, BSG currently within normal limits , unknown baseline control colon cancer status post surgery, in remission for decades as per patient Incidental finding of lobular densities left breast on CT, no concerns with last year's mammogram as per patient. Patient scheduled for outpatient mammography February 2022. GMF Analgesia, Flomax trial IVF, strain urine Urology consult Re: Obstructive uropathy (ER provider already in touch with Dr. Rouse who recommends antibiotic Rx for now.) N.p.o. after midnight in anticipation of procedure if stone does not pass ISS BG goal 1 10-1 40, check hemoglobin A1c Outpatient follow-up imaging for abnormal breast densities on CT. Patient given copy of report. DVT prophylaxis. Lovenox subcu Full code Text document was generated using [email or web address] voice recognition software. It may contain grammatical or spelling errors. Kindly contact undersigned for clarification of any documentation item in question. History of Present Illness Chief Complaint: Left flank pain Primary Care Provider: Gustavo Corbett History obtained from patient, family, and records. Medical history significant for hypertension, DM2 on oral medications, colon cancer status post surgery, arthritis. Last confinement June 2017 under Orthopedic spine service for elective back surgery for lumbar spinal stenosis. This morning, patient noted achy left flank pain without fever, chills, hematuria symptoms. No prior episodes. Patient brought to the ER for evaluation by . Patient given IV Ceftriaxone at the ER. Medical History as above Surgical History : Bowel surgery, orthopedic procedures Family History : DM, heart disease, stroke Personal/Social history : Non-smoker, no EtOH intake, retired school employee Allergies Allergy/AdvReac Type Severity Reaction Status Date / Time No Known Allergies Allergy Unverified 11/12/21 19:22 Home Medications Medication Instructions Recorded Confirmed Type aspirin 81 mg tablet,delayed 81 mg PO DAILY 11/12/21 11/12/21 History release bimatoprost 0.01 % eye drops 1 drp OPB HS 11/12/21 11/12/21 History (Sabra) clonidine HCl 0.2 mg tablet 0.2 mg PO BID 11/12/21 11/12/21 History dorzolamide 22.3 mg-timolol 6.8 1 drp OPB BID 11/12/21 11/12/21 History mg/mL eye drops (Cosopt) glipizide 5 mg-metformin 500 mg 2 tab PO BID 11/12/21 11/12/21 History tablet lisinopril 20 1 tab PO BID 11/12/21 11/12/21 History mg-hydrochlorothiazide 12.5 mg tablet mirtazapine 15 mg tablet 15 mg PO HS 11/12/21 11/12/21 History simvastatin 40 mg tablet 40 mg PO DAILY 11/12/21 11/12/21 History trazodone 50 mg tablet 50 mg PO HS PRN 11/12/21 11/12/21 History Past Med/Surg History Social History Smoking Status: Never smoker Hx Alcohol Use: No Hx Substance Use: No Preferred Language: Tanzanian Communication Ability: Effective Cooper Helper Required: No Beliefs That Will Affect Care: None Current Living Situation: Spouse Other Information That Helps Us Care for You: No Feels Safe at Home: Yes Safety Concerns: Feels Safe At This Time Assistive Devices: Glasses Review of Systems Review of Systems: As per HPI, all 10 systems reviewed, all other ROS negative Physical Exam Physical Exam: GENERAL: Comfortable, pleasant, looks younger for stated age, no respiratory distress SKIN: Normal color, warm HEENT: [place]be palpebral conjunctivae, no ptosis, dry buccal mucosa NECK : Supple, no tenderness CHEST : CTA, no tenderness HEART : RRR, no obvious murmurs ABDOMEN: Some distention, nontender EXTREMITIES : No LE swelling/tenderness, no other conspicuous deformities noted NEUROLOGIC : Coherent, no facial asymmetry, no other gross focality Results & Data Results & Data ([facility]) Vital Signs (Past 12 Hours) Vital Signs Temp Pulse Pulse Resp BP BP Pulse Ox 11/12/21 18:17 70 20 132/70 98 11/12/21 16:33 36.7 C 77 20 165/73 H 99 Laboratory Results Laboratory Results WBC 15.16 K/uL (4.8-10.8) H 11/12/21 16:49 RBC 3.82 M/uL (4.2-5.4) L 11/12/21 16:49 Hgb 12.5 g/dL (12.0-16.0) 11/12/21 16:49 Hct 37.2 % (37-47) 11/12/21 16:49 MCV 97.4 fL (80-100) 11/12/21 16:49 MCH 32.7 pg (25-34) 11/12/21 16:49 MCHC 33.6 g/dL (32-36) 11/12/21 16:49 RDW Std Deviation 43.8 fL (36.4-46.3) 11/12/21 16:49 RDW Coeff of Loly 12.3 % (11.5-14.5) 11/12/21 16:49 Plt Count 305 K/uL (130-400) 11/12/21 16:49 MPV 11.4 fL (7.4-10.4) H 11/12/21 16:49 Immature Gran % (Auto) 0.3 % 11/12/21 16:49 Neut % (Auto) 70.8 % 11/12/21 16:49 Lymph % (Auto) 20.4 % 11/12/21 16:49 [place] % (Auto) 7.5 % 11/12/21 16:49 Eos % (Auto) 0.7 % 11/12/21 16:49 Baso % (Auto) 0.3 % 11/12/21 16:49 Neut # (Auto) 10.73 K/uL (1.4-6.5) H 11/12/21 16:49 Lymph # (Auto) 3.10 K/uL (1.2-3.4) 11/12/21 16:49 [place] # (Auto) 1.14 K/uL (0.11-0.59) H 11/12/21 16:49 Eos # (Auto) 0.10 K/uL (0-0.5) 11/12/21 16:49 Baso # (Auto) 0.05 K/uL (0-0.2) 11/12/21 16:49 Immature Gran # (Auto) 0.04 K/uL (0.00-0.02) H 11/12/21 16:49 Sodium 137 mmol/L (136-145) 11/12/21 16:49 Potassium 4.1 mmol/L (3.5-5.1) 11/12/21 16:49 Chloride 100 mmol/L (98-107) 11/12/21 16:49 Carbon Dioxide 27 mmol/L (21-32) 11/12/21 16:49 Anion Gap 10 (3-11) 11/12/21 16:49 BUN 20 mg/dl (6-23) 11/12/21 16:49 Creatinine 0.86 mg/dl (0.6-1.2) 11/12/21 16:49 Est Cr Clr Drug Dosing 44.3 ml/min 11/12/21 16:49 Est GFR ( Amer) 73.4 ml/min 11/12/21 16:49 Est GFR (Non-Af Amer) 63.4 ml/min 11/12/21 16:49 BUN/Creatinine Ratio 23.3 (10-20) H 11/12/21 16:49 Glucose 99 mg/dl (70-99(Fasting)) 11/12/21 16:49 Calcium 9.4 mg/dl (8.5-10.1) 11/12/21 16:49 Total Bilirubin 0.4 mg/dl (0.2-1.0) 11/12/21 16:49 AST 15 U/L (13-39) 11/12/21 16:49 ALT 13 U/L (7-52) 11/12/21 16:49 Alkaline Phosphatase 70 U/L (34-104) 11/12/21 16:49 Total Protein 7.1 gm/dl (6.0-8.3) 11/12/21 16:49 Albumin 4.3 gm/dl (3.4-5.0) 11/12/21 16:49 Globulin 2.8 gm/dl (2.5-4.0) 11/12/21 16:49 Albumin/Globulin Ratio 1.5 (0.9-2) 11/12/21 16:49 Lipase 33 U/L (11-82) 11/12/21 16:49 Urine Color [place] 11/12/21 16:52 Urine Appearance Turbid (Clear) A 11/12/21 16:52 Urine pH 5.5 (4.5-7.5) 11/12/21 16:52 Ur Specific [place] 1.025 (1.000-1.030) 11/12/21 16:52 Urine Protein 2+ (Negative) H 11/12/21 16:52 Urine Glucose (UA) Negative (Negative) 11/12/21 16:52 Urine Ketones Trace (Negative) H 11/12/21 16:52 Urine Blood 3+ (Negative) H 11/12/21 16:52 Urine Nitrite Negative (Negative) 11/12/21 16:52 Urine Bilirubin 1+ (Negative) H 11/12/21 16:52 Urine Urobilinogen Negative (Negative) 11/12/21 16:52 Ur Leukocyte Esterase 1+ (Negative) H 11/12/21 16:52 Urine WBC (Auto) 10-30 /hpf (0-5) H 11/12/21 16:52 Urine RBC (Auto) >30 /hpf (0-4) H 11/12/21 16:52 U Hyaline Cast (Auto) 1-5 /lpf (0-5) 11/12/21 16:52 U Epithel Cells (Auto) >30 /lpf (0-5) H 11/12/21 16:52 Urine Bacteria (Auto) Negative (Negative) 11/12/21 16:52 SARS-CoV-2, RNA, NAAT NEGATIVE (NEGATIVE) 11/12/21 19:08 Impressions Abdomen/Pelvis CT 11/12/21 17:[address] WITHOUT CONTRAST CT DOSE: 262.67 mGy.cm HISTORY: Left flank pain. TECHNIQUE: Multiaxial CT images of the abdomen and pelvis were performed without contrast. A dose lowering technique was utilized adhering to the principles of ALARA. COMPARISON STUDY: None. FINDINGS: Posterior decompression fusion from L3 through S1 with pedicle screws and rods. A few bibasilar linear densities consistent with subsegmental atelectasis or scarring. Otherwise, the lung bases are clear. No pneumoperitoneum. No pneumatosis. No acute fractures within the visualized osseous structures. Asymmetric lobular densities within the left breast. Dominant lobulated density on image 19 measures 2 cm. The unenhanced liver, adrenal glands, gallbladder, and pancreas unremarkable. Punctate calcified granuloma within the spleen. Normal right kidney. No renal calculi identified. There is mild left hydroureteronephrosis secondary to an obstructing 4 mm stone within the mid left ureter best seen on image 170. The bladder is decompressed and not well visualized. No pelvic free fluid. Mild presacral edema. Suboptimal evaluation for bowel pathology due to the lack of intravenous and oral contrast. However, there is no definite bowel wall thickening or obstruction. Questionable thickening of the rectum is likely due to underdistention. IMPRESSION: 1. A 4 mm obstructing stone within the mid left ureter resulting in mild left hydronephrosis. 2. Asymmetric lobular densities within the left breast measuring up to 2 cm. Follow-up nonemergent mammogram/ultrasound at a dedicated breast cancer Center is recommended to exclude the possibility of a developing breast lesion. 3. Questionable thickening of the rectum is likely due to underdistention. There is mild presacral/perirectal edema. A low-grade proctitis could also a similar appearance. ACT 112: Positive. There are findings on this exam that require communication between the performing entity and the patient following Patient Test Result Information Act ([place] Act 112) guidelines. Electronically signed by: Kristian Leblanc M.D. 11/12/2021 6:08 PM
[2021-11-12] MEDS ORDERED: ACETAMINOPHEN 325 MG TAB PO PRN ×2 (20:05→21:45)
[2021-11-12] MEDS ORDERED: GLUCOSE 10 TABS/TUBE PO PRN (21:45)
[2021-11-12] MEDS ORDERED: DEXTROSE 50% 50 ML SYRINGE IV PRN (21:45)
[2021-11-12] MEDS ORDERED: CARBOHYDRATES FOR HYPOGLYCEMIA PO PRN (21:45)
[2021-11-12] MEDS ORDERED: PROMETHAZINE HCL 12.5 MG in SODIUM CHLORIDE 0.9% 50 ML IV PRN (21:45)
[2021-11-12] MEDS ORDERED: GLUCOSE 40% GEL 15 GM TUBE PO PRN (21:45)
[2021-11-12] MEDS ORDERED: MoRPHine SULFATE 4 MG/ML 1 ML CARP\\VIAL IV PRN (21:45)
[2021-11-12] MEDS ORDERED: oxyCODONE HCL IR 5 MG TAB (IMMEDIATE RELEASE) PO PRN (21:45)
[2021-11-12] MEDS ORDERED: traZODone HCL 50 MG TAB PO PRN (21:45)
[2021-11-12] MEDS ORDERED: GLUCAGON FOR INJ 1 MG VIAL SQ PRN (21:45)
[2021-11-12] MEDS: ASPIRIN 81 MG ECTAB PO SCH (22:45)
[2021-11-12] MEDS: BIMATOPROST 0.01% OP SOLN 2.5 ML BTL OP SCH (22:45)
[2021-11-12] MEDS: MIRTAZAPINE TAB 15 MG TAB PO SCH (22:45)
[2021-11-12] MEDS: DORZOLAMIDE/TIMOLOL 22.3/6.8MG/ML 10 ML BTL OPB SCH (22:46)
[2021-11-12] MEDS: SODIUM CHLORIDE 0.9% 1000ML 1,000 ML IV SCH (22:47)
[2021-11-13] MEDS: INSULIN ASPART PER UNIT SC SCH ×5 (00:24→21:00)
[2021-11-13 06:42] LABS: Basophils # (auto) 0.04 K/uL (0-0.2); Basophils % (auto) 0.3 %; Eosinophils # (auto) 0.07 K/uL (0-0.5); Eosinophils % (auto) 0.6 %; Hematocrit (blood only) 31.9 % (37-47); Hemoglobin 10.9 g/dL (12.0-16.0); Immature Granulocytes # (auto) 0.02 K/uL (0.00-0.02); Immature Granulocytes % (auto) 0.2 %; Lymphocytes # (auto) 2.11 K/uL (1.2-3.4); Lymphocytes % (auto) 17.9 %; Mean Corpuscular Hemoglobin 32.9 pg (25-34); Mean Corpuscular Hgb Conc 34.2 g/dL (32-36); Mean Corpuscular Volume 96.4 fL (80-100); Monocytes % (auto) 9.3 %; Neutrophils # (auto) 8.45 K/uL (1.4-6.5); Neutrophils % (auto) 71.7 %; Platelet Count 253 K/uL (130-400); RDW Coefficient of Variation 12.3 % (11.5-14.5); RDW Standard Deviation 43.2 fL (36.4-46.3); Red Blood Count 3.31 M/uL (4.2-5.4); White Blood Count 11.79 K/uL (4.8-10.8)
[2021-11-13 07:05] LABS: Estimated Average Glucose 154 mg/dl
[2021-11-13 07:08] LABS: BUN Creatinine Ratio 18.7 (10-20); Calcium 7.8 mg/dl (8.5-10.1); Creatinine Clr Calc Pharmacy 41.9 ml/min; Est GFR (African American) 68.6 ml/min; Est GFR (Non-African American) 59.2 ml/min; Potassium 3.7 mmol/L (3.5-5.1)
[2021-11-13] MEDS: cloNIDine HCL 0.1 MG TAB PO SCH ×2 (08:34→20:35)
[2021-11-13] MEDS: lisinopril 20 MG TAB PO SCH (08:34)
[2021-11-13] MEDS: SIMVASTATIN 40 MG TAB PO SCH (08:34)
[2021-11-13] MEDS: DORZOLAMIDE/TIMOLOL 22.3/6.8MG/ML 10 ML BTL OPB SCH ×2 (08:35→20:33)
[2021-11-13] MEDS ORDERED: MoRPHine SULFATE 4 MG/ML 1 ML CARP\\VIAL IV PRN ×2 (08:46→11:43)
[2021-11-13] MEDS ORDERED: ONDANSETRON INJ 2 MG/ML 2 ML VIAL IV ONE (08:47)
[2021-11-13] MEDS: SODIUM CHLORIDE 0.9% 1000ML 1,000 ML IV SCH (11:44)
--- NOTE | 2021-11-13 12:14 | Anesthesiology Consultation ---
Date of Service November 13, 2021 Assessment & Plan (1) Encounter for pre-operative examination: Chart Review Chart Review: Acceptable Risk for Surgery and Patient NOT seen in Pre Admission Testing Consults Requested none History Surgery Operation Date: 11/13/21 11:00 Proposed Procedures p Ureteral Stent Insertion/Removal, cystoscopy - Bam Rouse, Height/Weight Height: 5 ft 4 in Weight: 65.1 kg Allergies Allergy/AdvReac Type Severity Reaction Status Date / Time No Known Allergies Allergy Unverified 11/12/21 19:22 Medications Home Medications Medication Instructions Recorded Confirmed Last Taken aspirin 81 mg tablet,delayed 81 mg PO DAILY 11/12/21 11/12/21 Unknown release bimatoprost 0.01 % eye drops 1 drp OPB HS 11/12/21 11/12/21 Unknown ([place]) clonidine HCl 0.2 mg tablet 0.2 mg PO BID 11/12/21 11/12/21 Unknown dorzolamide 22.3 mg-timolol 6.8 1 drp OPB BID 11/12/21 11/12/21 Unknown mg/mL eye drops (Cosopt) glipizide 5 mg-metformin 500 mg 2 tab PO BID 11/12/21 11/12/21 Unknown tablet lisinopril 20 1 tab PO BID 11/12/21 11/12/21 Unknown mg-hydrochlorothiazide 12.5 mg tablet mirtazapine 15 mg tablet 15 mg PO HS 11/12/21 11/12/21 Unknown simvastatin 40 mg tablet 40 mg PO DAILY 11/12/21 11/12/21 Unknown trazodone 50 mg tablet 50 mg PO HS PRN 11/12/21 11/12/21 Unknown Active Medications Generic Name Dose Route Start Last Admin Trade Name Freq PRN Reason Stop Dose Admin Aspirin 81 mg 11/12/21 21:45 11/12/21 22:45 Aspirin 81 Mg Ectab PO 12/12/21 21:44 81 mg HS SAM Administration Bimatoprost 1 drops 11/12/21 22:00 11/12/21 22:45 Bimatoprost 0.01% Op Soln 2.5 Ml Btl OP 12/12/21 21:59 1 drops HS SAM Administration Clonidine HCl 0.2 mg 11/13/21 09:00 11/13/21 08:34 Clonidine Hcl 0.1 Mg Tab PO 12/13/21 08:59 0.2 mg BID SAM Administration Dorzolamide/Timolol 1 drops 11/12/21 21:45 11/13/21 08:35 Dorzolamide/Timolol 22.3/6.8mg/Ml 10 Ml Btl OPB 12/12/21 21:44 1 drops BID SAM Administration Promethazine HCl 12.5 mg/ 50.5 mls @ 202 mls/hr 11/12/21 21:45 11/13/21 04:20 Sodium Chloride IV 12/12/21 21:44 Infused Q6H PRN Infusion Nausea And Vomiting Sodium Chloride 1,000 mls @ 80 mls/hr 11/12/21 22:00 11/13/21 11:44 Nss 1000ml IV 12/12/21 21:59 80 mls/hr .[id number] SAM Administration Insulin Aspart 0 units 11/13/21 00:00 11/13/21 06:16 Insulin Aspart Per Unit SC 12/13/21 00:00 1 units Q6 SAM Administration Lisinopril 20 mg 11/13/21 09:00 11/13/21 08:34 Lisinopril 20 Mg Tab PO 12/13/21 08:59 20 mg QAM SAM Administration Mirtazapine 15 mg 11/12/21 21:45 11/12/21 22:45 Mirtazapine Tab 15 Mg Tab PO 12/12/21 21:44 15 mg HS SAM Administration Oxycodone HCl 5 mg 11/12/21 21:45 11/13/21 03:21 Oxycodone Hcl Ir 5 Mg Tab (Immediate Release) PO 11/26/21 21:44 5 mg Q4H PRN Administration Pain Simvastatin 40 mg 11/13/21 09:00 11/13/21 08:34 Simvastatin 40 Mg Tab PO 12/13/21 08:59 40 mg DAILY SAM Administration NPO Date Last Intake of Fluids: 11/12/21 Date Last Intake of Solids: 11/12/21 Social History Smoking Status: Never smoker Hx Alcohol Use: No Hx Substance Use: No substance use type: does not use Physical Exam Vital Signs Last Vital Signs Temp 37 C 11/13/21 07:57 Pulse 61 11/13/21 07:57 Resp 18 11/13/21 07:57 BP 161/75 H 11/13/21 07:57 Pulse Ox 96 11/13/21 07:57 Testing Laboratory Results 11/13/21 06:29 11/13/21 06:29 Hemoglobin A1c 7.0 % (4.5-5.6) H 11/12/21 Unknown Urine Color [place] 11/12/21 16:52 Urine Appearance Turbid (Clear) A 11/12/21 16:52 Urine pH 5.5 (4.5-7.5) 11/12/21 16:52 Ur Specific [place] 1.025 (1.000-1.030) 11/12/21 16:52 Urine Protein 2+ (Negative) H 11/12/21 16:52 Urine Glucose (UA) Negative (Negative) 11/12/21 16:52 Urine Ketones Trace (Negative) H 11/12/21 16:52 Urine Nitrite Negative (Negative) 11/12/21 16:52 Ur Leukocyte Esterase 1+ (Negative) H 11/12/21 16:52 Urine WBC (Auto) 10-30 /hpf (0-5) H 11/12/21 16:52 Urine RBC (Auto) >30 /hpf (0-4) H 11/12/21 16:52 U Hyaline Cast (Auto) 1-5 /lpf (0-5) 11/12/21 16:52 U Epithel Cells (Auto) >30 /lpf (0-5) H 11/12/21 16:52 Urine Bacteria (Auto) Negative (Negative) 11/12/21 16:52 11/13/21 11/13/21 11/13/21 11:58 06:06 00:06 POC Glucose 174 H 149 H 128 H
--- NOTE | 2021-11-13 12:29 | Hospitalist Progress Note ---
Date of Service November 13, 2021 Assessment & Plan (1) Kidney stone on left side: Plan: Renal Colic: Obstructive Uropathy: --CT abdomen showed:A 4 mm obstructing stone within the mid left ureter resulting in mild left hydronephrosis. Asymmetric lobular densities within the left breast measuring up to 2 cm. Follow-up nonemergent mammogram/ultrasound at a dedicated breast cancer Center is recommended to exclude the possibility of a developing breast lesion. --Urine culture pending Empirically started on Rocephin Continue IV fluids Pain control Continue flomax Urology consulted Strain Urine Bladder scan PRN NPO for intervention today Hypertension BP slightly elevated elect secondary to pain Continue clonidine, lisinopril Monitor DM II Hold p.o. meds Continue insulin therapy while hospitalized Monitor BGs H/O Colon cancer S/P surgery In remission as per patient Abnormal CT Incidental finding of lobular densities left breast Will need mammography as outpatient Hyperlipidemia Continue statin DVT Px: Lovenox SQ Code Status Full code Admission and Anticipated Discharge Date Admission Date: November 12, 2021 Subjective Patient is seen and examined at bedside States having left flank pain States having nausea earlier today which currently resolved Denies any chest pain, shortness of breath, vomiting, abdominal pain, hematuria, dysuria Planned for ureteral stent placement today Review of Systems Review of Systems: All systems reviewed & are unremarkable except as noted in Subjective Physical Exam Physical Exam: Physical Exam: Vitals signs as noted above General Appearance:Moderately built and nourished, mild distress Head: normocephalic, Atraumatic Eyes: normal inspection, EOMI Neck: supple, Trachea midline Respiratory/Chest: Normal breath sounds, CTA, No accessory muscle use Cardiovascular: S1, S2, No murmur Abdomen/GI:Soft, Left flank tender, Bowel sounds present Extremities/Musculoskeletal:normal inspection, no edema Neurologic/Psych:AAOX3, grossly no focal neurological deficits Skin: normal color, warm Results & Data Results & Data ([facility]) Vital Signs (Past 12 Hours) Vital Signs Temp Pulse Resp BP Pulse Ox 11/13/21 07:57 37 C 61 18 161/75 H 96 Laboratory Results Short CBC 11/12/21 11/13/21 Range/Units 16:49 06:29 WBC 15.16 H 11.79 H (4.8-10.8) K/uL Hgb 12.5 10.9 L (12.0-16.0) g/dL Hct 37.2 31.9 L (37-47) % Plt Count 305 253 (130-400) K/uL BMP 11/12/21 11/13/21 16:49 06:29 Sodium 137 136 Potassium 4.1 3.7 Chloride 100 105 Carbon Dioxide 27 22 BUN 20 17 Creatinine 0.86 0.91 Glucose 99 153 H Calcium 9.4 7.8 L Liver Function 11/12/21 Range/Units 16:49 Total Bilirubin 0.4 (0.2-1.0) mg/dl AST 15 (13-39) U/L ALT 13 (7-52) U/L Alkaline Phosphatase 70 (34-104) U/L Albumin 4.3 (3.4-5.0) gm/dl Urine 11/12/21 Range/Units 16:52 Urine Color [place] Urine Appearance Turbid A (Clear) Urine pH 5.5 (4.5-7.5) Ur Specific [place] 1.025 (1.000-1.030) Urine Protein 2+ H (Negative) Urine Glucose (UA) Negative (Negative)
--- NOTE | 2021-11-13 13:18 | Urology Consultation ---
Date of Consultation November 13, 2021 Assessment & Plan (1) Kidney stone on left side: Patient with obstructing stone, Failed passage. Still requiring IV medication. Singificant bothersome pain. Hypertension but afebrile. Supportive care. Hydration. NPO. No personal history of stones. No family history of stones. Risks and benefits discussed at length for procedure. These include bleeding, infection, injury to surrounding tissues or organs, and risks associated with anesthesia. Patient states understanding and agrees to proceed. Will sign consent and proceed. Plan for cystoscopy with left Stent And possible stone treatment History of Present Illness Attending Physician: Vinay Morris MD History of Present Illness New consultation for patient with stone, discomfort, obstruction, and ill feelings. Patient developed sudden onset of pain into flank going down and radiating into groin and back in waves comes and goes. Can be severe at times. Discussed and reviewed patient's family history for any history of stone disease. Also, discussed patient's medical surgery history especially related to any history of urinary issues or stone disease. Patient was admitted and is undergoing observation. Allergies Allergy/AdvReac Type Severity Reaction Status Date / Time No Known Allergies Allergy Unverified 11/12/21 19:22 Home Medications Medication Instructions Recorded Confirmed Type aspirin 81 mg tablet,delayed 81 mg PO DAILY 11/12/21 11/12/21 History release bimatoprost 0.01 % eye drops 1 drp OPB HS 11/12/21 11/12/21 History ([place]) clonidine HCl 0.2 mg tablet 0.2 mg PO BID 11/12/21 11/12/21 History dorzolamide 22.3 mg-timolol 6.8 1 drp OPB BID 11/12/21 11/12/21 History mg/mL eye drops (Cosopt) glipizide 5 mg-metformin 500 mg 2 tab PO BID 11/12/21 11/12/21 History tablet lisinopril 20 1 tab PO BID 11/12/21 11/12/21 History mg-hydrochlorothiazide 12.5 mg tablet mirtazapine 15 mg tablet 15 mg PO HS 11/12/21 11/12/21 History simvastatin 40 mg tablet 40 mg PO DAILY 11/12/21 11/12/21 History trazodone 50 mg tablet 50 mg PO HS PRN 11/12/21 11/12/21 History Patient History Social History Smoking Status: Never smoker Hx Alcohol Use: No Hx Substance Use: No Preferred Language: [place] Communication Ability: Effective Picker Packer Required: No Beliefs That Will Affect Care: None Current Living Situation: Spouse Other Information That Helps Us Care for You: No Feels Safe at Home: Yes Safety Concerns: Feels Safe At This Time Assistive Devices: None Review of Systems Review of Systems: All systems reviewed & are unremarkable except as noted in HPI & below Physical Exam Physical Exam: General: Alert and oriented x 3 in no acute distress. Patient is well nourished and well kept. HEENT: Normocephalic Atraumatic. Inspection normal. Cranial Nerves 2-12 Grossly intact. Nares are clear. Neck is supple. Normal inspection of face. Normal inspection of neck. Neurologic: No deficits on inspection. Baseline for motor function and sensory. Psychologic: Normal affect. Respiratory: Nonlabored. No use of accessory muscles. No tachypnea or dyspnea. Cardiovascular: No tachycardia Skin: [place] and Dry. No rashes or visible lesions. Extremities: Moving without issues. No motor deficits on inspection Abdomen: Soft Non-distended. No acites. No rebound or guarding. Results & Data ([facility]) Vital Signs (Past 12 Hours) Vital Signs Temp Pulse Resp BP Pulse Ox 11/13/21 07:57 37 C 61 18 161/75 H 96 PG Care Time/CCT Total # of Minutes Spent Total Time Spent with Patient: Total time spent is greater than 50% in coordination of care (as documented) at patient's floor/unit and/or counseling patient: Coding Level of Care Code 00810 Inpt Consult Level 5 Diagnoses Kidney stone on left side N20.0
[2021-11-13] MEDS ORDERED: fentaNYL citrate 100 MCG/2 ML VIAL ONE (13:34)
[2021-11-13] MEDS ORDERED: LIDOCAINE 2% 2 ML VIAL/AMP(20MG/ML) INFIL ONE (13:34)
[2021-11-13] MEDS ORDERED: PROPOFOL IV EMULSION 10 MG/ML 20 ML VIAL IV ONE (13:34)
[2021-11-13] MEDS ORDERED: ePHEDrine sulfate 50 MG/ML AMP IV PRN (13:54)
[2021-11-13] MEDS ORDERED: fentaNYL citrate 100 MCG/2 ML VIAL IV PRN (13:54)
[2021-11-13] MEDS ORDERED: ATROPINE SULFATE 0.1 MG/ML 10ML SYR IV PRN (13:54)
[2021-11-13] MEDS ORDERED: ONDANSETRON INJ 2 MG/ML 2 ML VIAL IV PRN (13:54)
[2021-11-13] MEDS ORDERED: ceFAZolin 330 MG/ML 1 GM VIAL ONE (14:20)
[2021-11-13] MEDS ORDERED: DIATRIZOATE MEGLUMINE 30% 100ML VIAL INSTIL ONE (14:24)
--- NOTE | 2021-11-13 14:46 | Operative Report ---
PG Post Operative Report Pre & Post Diagnosis Operation Date: 11/13/21 11:00 Pre-Op Diagnosis: Left Ureteral Stone Post-Op Diagnosis: Left Ureteral Stone Multiple Bladder Tumors I identified the patient and participated in the time-out.: Yes Procedure Operation Date: 11/13/21 11:00 Actual Procedures p Cystoscopy with Transurethral resection of bladder tumor small and Left ureteroscopy, dilation of ureter, stone basket extraction, Retrograde Pyleogram, and stent placement - Bam Rouse DO Surgeon Bam Rouse, II, DO Clinical Academic Allergist None Estimated Blood Loss 2 Findings Consistent with Post-Op Diagnosis Stone removed after dilation of stricture. Incidentally found to be bladder tumors along left anterior/lateral wall. Three small tumors approx 0.5cm each in size. 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 Drains 6 Fr x 22 18 Fr latham Anesthesia Type MAC Complications none Disposition Disposition: Recovery Room Indications Patient with obstructing stone and significant hydronephrosis. Incidentally found to have small bladder lesions. Risks and benefits discussed at length. Description of Procedure Patient was consented and brought back to the operating room. Patient was placed under anesthesia in the supine position and moved to the dorsal lithotomy position. Patient was prepped and draped in the regular sterile fashion. A time out was completed. A 30degree Cystoscope was placed into the bladder and the entire bladder was examined. The UO's were identified. Incidentally small tumors were found on the left anterior/lateral wall. These were small and a cluster of 3 tumors suspicious for possible bladder cancer. The left UO was cannulized with a catheter and a retrograde pyelogram was completed. A wire was then placed. The stone was found significant obstructing the passage of the wire. The Rigid ureteroscope was taken into the ureter. The stone was identified impacted into a strictured area of the mid ureter. The wire under visualization was able to be advanced pass the stone. The stone was displaced proximally and the stricture was dilated. The stone was then grasped with a basket and removed and sent for analysis. The entire area was once again examined. No residual large fragments or areas of concern were noted. The strictured area was found to be irritated but no major areas of concern. The scope was slowly removed with the wire left in place. Contrast was placed through the scope for a pyelogram to assist in stent placement. The entire ureter was examined as the scope was slowly removed. No obstructions or other areas of concern were noted. With the wire in place, a 6 Fr Double J stent was placed. It was confirmed with fluoroscopy. With the stent in place, the bladder inspected again. Due to location, cold cup biopsy was not able to be completed. A TUR set was selected with a fine bipolar loop. The Tumors were resected and sent for analysis together. The edges were then fulgurated as well as the tumor resection bed. The scope was removed. A 18 Fr latham catheter was then placed to allow complete drainage with the obstructing stone as well as to decompress the bladder. The patient was cleaned, aroused from anesthesia, and transferred to the pacu in stable condition having tolerated the procedure well with no complications. I was present and participated in all aspects of the procedure. The patient will be monitored in the PACU until transferred. Plan to maintain latham for 3-5 days for drainage. Will have stent removed in office in 1-3 weeks. Will plan to discuss pathology at time of stent removal. I attest to the content of the Intraoperative Record and any orders documented therein. Any exceptions are noted below.
--- NOTE | 2021-11-13 15:13 | Anesthesiology Progress Note ---
Date of Service November 13, 2021 Anesthesia Post Procedure Vital Signs Vital Signs: Temp Pulse Pulse Pulse Resp BP BP 11/13/21 15:00 56 L 14 119/60 11/13/21 14:53 36.3 C L 69 15 110/58 L 11/13/21 07:57 37 C 61 18 161/75 H 11/12/21 21:46 36.8 C 79 16 150/79 H 11/12/21 21:24 78 14 145/74 H 11/12/21 18:17 70 20 132/70 11/12/21 16:33 36.7 C 77 20 165/73 H Pulse Ox 11/13/21 15:00 96 11/13/21 14:53 96 11/13/21 07:57 96 11/12/21 21:46 95 11/12/21 21:24 98 11/12/21 18:17 98 11/12/21 16:33 99 Transfer of Care Handoff Completed per policy Notes Mental Status: alert / awake / arousable and participated in evaluation Nausea / Vomiting: adequately controlled Pain: adequately controlled Airway Patency, RR, SpO2: stable & adequate BP & HR: stable & adequate Hydration State: stable & adequate Anesthetic Complications: no major complications apparent and Pt Satisfied with anesthetic care
--- NOTE | 2021-11-13 15:41 | Fluoroscopy Report ---
FL retrograde includes kub CLINICAL HISTORY: Ureteral stent placement. Left-sided hydronephrosis. COMPARISON STUDY: Abdomen and pelvis CT 11/12/2021. FLUOROSCOPY TIME: 1 minute and 5 seconds. FINDINGS: 2 fluoroscopic spot images of the abdomen and pelvis demonstrate opacities in the left michael l collecting system and a left ureteral stent. The ureteral stent appears in good position. IMPRESSION: Fluoroscopic assistance provided for left ureteral stent placement ACT 112: Negative or not required by law. Electronically signed by: Kristian Leblanc M.D. 11/13/2021 3:39 PM
[2021-11-13] MEDS ORDERED: Nursing to Pharmacy Communication SCH (16:30)
[2021-11-13] MEDS: ENOXAPARIN INJ 40 MG/0.4 ML SYR SQ SCH ×2 (16:37→17:32)
[2021-11-13] MEDS ORDERED: cefTRIAXone SODIUM 1,000 MG in DEXTROSE 5% 50 ML IV SCH (18:00)
[2021-11-13] MEDS: MIRTAZAPINE TAB 15 MG TAB PO SCH (20:35)
[2021-11-13] MEDS: ASPIRIN 81 MG ECTAB PO SCH (20:35)
[2021-11-13] MEDS: BIMATOPROST 0.01% OP SOLN 2.5 ML BTL OP SCH (20:36)
[2021-11-13] MEDS ORDERED: TAMSULOSIN HCL 0.4 MG CAP PO SCH (21:00)
[2021-11-14 08:02] LABS: Hematocrit (blood only) 29.8 % (37-47); Hemoglobin 10.1 g/dL (12.0-16.0); Mean Corpuscular Hemoglobin 33.1 pg (25-34); Mean Corpuscular Hgb Conc 33.9 g/dL (32-36); Mean Corpuscular Volume 97.7 fL (80-100); Mean Platelet Volume 11.1 fL (7.4-10.4); Platelet Count 219 K/uL (130-400); RDW Coefficient of Variation 12.5 % (11.5-14.5); RDW Standard Deviation 44.4 fL (36.4-46.3); Red Blood Count 3.05 M/uL (4.2-5.4); White Blood Count 6.76 K/uL (4.8-10.8)
[2021-11-14] MEDS: SIMVASTATIN 40 MG TAB PO SCH (08:28)
--- NOTE | 2021-11-14 08:28 | Urology Progress Note ---
Date of Service November 14, 2021 Assessment & Plan (1) Kidney stone on left side: Plan: Patient had stone treated. Has stent in place. Has been tolerating without major issue. Patient had incidentally found to have bladder lesions underwent resection. Will await pathology on this. Will likely take 1 to 2 weeks to be available. We will plan to maintain catheter for approximately 5 days. We will have patient come into the office to have removed. We will plan to maintain stent for 1 to 2 weeks. We will plan to reassess patient moving forward. Will await results of pathology. Continue with supportive care. Okay to utilize medications for pain control including Pyridium, Flomax, oxybutynin, and narcotic pain meds if necessary. Likely will need approximately 7 to 10 days of antibiotics. We will plan for outpatient follow-up Admission and Anticipated Discharge Date Admission Date: November 12, 2021 Subjective Postop from stent placement for obstruction issues. Had stone removed during procedure. Patient has been tolerating well. Has noticed some frequency and urgency. Has not had severe pain in the back and flank. Does have occasional burning and irritation. No severe episodes or major changes. No new nausea or vomiting. Had tolerated anesthesia without major problems Patient incidentally found to have small bladder lesions on left anterior/lateral wall. Underwent resection. Catheter was left in place to allow decompression of bladder as well as to maximize drainage with treatment of stone Review of Systems Review of Systems: All systems reviewed & are unremarkable except as noted in HPI & below Physical Exam Physical Exam: General: Alert in no acute distress. HEENT: Normocephalic Atraumatic. Inspection normal. Cranial Nerves 2-12 Grossly intact. Normal inspection of face. Normal inspection of neck. Psychologic: Normal affect. Respiratory: Nonlabored. No use of accessory muscles. No tachypnea or dyspnea. Cardiovascular: No tachycardia Skin: [place] and Dry. No rashes or visible lesions. Abdomen: No rebound or guarding. : Arango in place draining clear/light red urine. Results & Data ([facility]) Vital Signs (Past 12 Hours) Vital Signs Temp Pulse Pulse Resp BP Pulse Ox 11/14/21 07:46 36.8 C 65 18 139/77 94 11/14/21 03:07 36.8 C 64 18 112/66 91 11/13/21 22:52 36.6 C 59 L 17 105/64 91 PG Care Time/CCT Total # of Minutes Spent Total Time Spent with Patient: Total time spent is greater than 50% in coordination of care (as documented) at patient's floor/unit and/or counseling patient: Coding Level of Care Code 98713 Subseq Hosp Care Lvl 3 Diagnoses Kidney stone on left side N20.0
[2021-11-14] MEDS: DORZOLAMIDE/TIMOLOL 22.3/6.8MG/ML 10 ML BTL OPB SCH (08:29)
[2021-11-14] MEDS: cloNIDine HCL 0.1 MG TAB PO SCH (08:29)
[2021-11-14] MEDS: ENOXAPARIN INJ 40 MG/0.4 ML SYR SQ SCH (08:29)
[2021-11-14] MEDS: lisinopril 20 MG TAB PO SCH (08:29)
[2021-11-14 08:30] LABS: BUN Creatinine Ratio 15.4 (10-20); Calcium 7.6 mg/dl (8.5-10.1); Creatinine Clr Calc Pharmacy 48.8 ml/min; Est GFR (African American) 82.6 ml/min; Est GFR (Non-African American) 71.3 ml/min; Magnesium 1.6 mg/dl (1.7-2.4); Potassium 3.8 mmol/L (3.5-5.1)
[2021-11-14] MEDS: INSULIN ASPART PER UNIT SC SCH ×2 (08:37→12:33)
[2021-11-14] MEDS ORDERED: PHENAZOPYRIDINE HCL 100 MG TAB PO PRN (09:36)
[2021-11-14] MEDS ORDERED: MAGNESIUM SULFATE / D5W 1 GM/100 ML BAG IV ONE (10:00)
--- NOTE | 2021-11-14 12:12 | Hospitalist Progress Note ---
Date of Service November 14, 2021 Assessment & Plan (1) Kidney stone on left side: Plan: Renal Colic: Obstructive Uropathy: --CT abdomen showed:A 4 mm obstructing stone within the mid left ureter resulting in mild left hydronephrosis. Asymmetric lobular densities within the left breast measuring up to 2 cm. Follow-up nonemergent mammogram/ultrasound at a dedicated breast cancer Center is recommended to exclude the possibility of a developing breast lesion. --S/P Cystoscopy with Transurethral resection of bladder tumor small and Left ureteroscopy, dilation of ureter, stone basket extraction, Retrograde Pyleogram, and stent placement POD #1 --Urine culture: Negative Continue Rocephin Day #2>> transition to p.o. antibiotics to complete the course as recommended by urology Received IV fluids Pain control Continue flomax Appreciate Urology Input Strain Urine Bladder scan PRN Needs follow up with Urology upon discharge Pyridium as needed Continue to maintain Arango catheter for 5 days Bladder Tumor Incidental finding on Cystoscopy S/P resection Follow up with Urology as outpatient Hypertension Stable Continue clonidine, lisinopril Monitor DM II Hold p.o. meds Continue insulin therapy while hospitalized Monitor BGs H/O Colon cancer S/P surgery In remission as per patient Abnormal CT Incidental finding of lobular densities left breast Advised to get mammography as outpatient Hyperlipidemia Continue statin DVT Px: Lovenox SQ Code Status Full code Admission and Anticipated Discharge Date Admission Date: November 12, 2021 Subjective Patient is seen and examined at bedside States feeling well Flank pain resolved Minimal blood tinged urine noted Discussed with Urology today Denies any chest pain, shortness of breath, vomiting, abdominal pain, hematuria, dysuria Plan to discharge home today Review of Systems Review of Systems: All systems reviewed & are unremarkable except as noted in Subjective Physical Exam Physical Exam: Physical Exam: Vitals signs as noted above General Appearance:Moderately built and nourished, mild distress Head: normocephalic, Atraumatic Eyes: normal inspection, EOMI Neck: supple, Trachea midline Respiratory/Chest: Normal breath sounds, CTA, No accessory muscle use Cardiovascular: S1, S2, No murmur Abdomen/GI:Soft, non tender, Bowel sounds present Extremities/Musculoskeletal:normal inspection, no edema Neurologic/Psych:AAOX3, grossly no focal neurological deficits Skin: normal color, warm Results & Data Results & Data ([facility]) Vital Signs (Past 12 Hours) Vital Signs Temp Pulse Pulse Pulse Resp BP Pulse Ox 11/14/21 11:55 36.8 C 52 L 65 59 L 18 139/77 94 11/14/21 07:46 36.8 C 65 18 139/77 94 11/14/21 03:07 36.8 C 64 18 112/66 91 Laboratory Results Short CBC 11/14/21 Range/Units 07:32 WBC 6.76 (4.8-10.8) K/uL Hgb 10.1 L (12.0-16.0) g/dL Hct 29.8 L (37-47) % Plt Count 219 (130-400) K/uL BMP 11/14/21 07:32 Sodium 138 Potassium 3.8 Chloride 108 H Carbon Dioxide 25 BUN 12 Creatinine 0.78 Glucose 104 H Calcium 7.6 L
--- NOTE | 2021-11-14 12:26 | Discharge Summary ---
Date of Service November 14, 2021 Admission HPI Per Admitting Provider History obtained from patient, family, and records. Medical history significant for hypertension, DM2 on oral medications, colon cancer status post surgery, arthritis. Last confinement June 2017 under Orthopedic spine service for elective back surgery for lumbar spinal stenosis. This morning, patient noted achy left flank pain without fever, chills, hematuria symptoms. No prior episodes. Patient brought to the ER for evaluation by . Patient given IV Ceftriaxone at the ER. Medical History as above Surgical History : Bowel surgery, orthopedic procedures Family History : DM, heart disease, stroke Personal/Social history : Non-smoker, no EtOH intake, retired school employee Admission Exam Per Admitting Provider Physical Exam Physical Exam: GENERAL: Comfortable, pleasant, looks younger for stated age, no respiratory distress SKIN: Normal color, warm HEENT: [place] palpebral conjunctivae, no ptosis, dry buccal mucosa NECK : Supple, no tenderness CHEST : CTA, no tenderness HEART : RRR, no obvious murmurs ABDOMEN: Some distention, nontender EXTREMITIES : No LE swelling/tenderness, no other conspicuous deformities noted NEUROLOGIC : Coherent, no facial asymmetry, no other gross focality Principal Diagnosis Renal Colic Obstructive Uropathy left breast lesion Bladder Tumor S/P resection Discharge Data Allergies Allergy/AdvReac Type Severity Reaction Status Date / Time No Known Allergies Allergy Unverified 11/12/21 19:22 Consultations 11/12/21 19:19 ED Decision to Admit Stat 11/12/21 21:45 Consult Urology Routine Procedures Performed Operation Date: 11/13/21 11:00 Actual Procedures p Cystoscopy, Left Retrograde Pyleogram, Left Ureteroscopy with Stone Basket Extraction, Insertion of Left Ureteral Stent and Small Transurethral Resection of Bladder Tumors - Bam Rouse, Ordered Studies 11/12/21 17:28 CT abd pelvis wo con Stat 11/13/21 [place] retrograde includes kub Routine Hospital Course (1) Kidney stone on left side: Renal Colic: Obstructive Uropathy: --CT abdomen showed:A 4 mm obstructing stone within the mid left ureter resulting in mild left hydronephrosis. Asymmetric lobular densities within the left breast measuring up to 2 cm. Follow-up nonemergent mammogram/ultrasound at a dedicated breast cancer Center is recommended to exclude the possibility of a developing breast lesion. --S/P Cystoscopy with Transurethral resection of bladder tumor small and Left ureteroscopy, dilation of ureter, stone basket extraction, Retrograde Pyleogram, and stent placement POD #1 --Urine culture: Negative Continue Rocephin Day #2>> transition to p.o. antibiotics to complete the course as recommended by urology Received IV fluids Pain control Continue flomax Appreciate Urology Input Strain Urine Bladder scan PRN Needs follow up with Urology upon discharge Pyridium as needed Continue to maintain Arango catheter for 5 days Bladder Tumor Incidental finding on Cystoscopy S/P resection Follow up with Urology as outpatient Hypertension Stable Continue clonidine, lisinopril Monitor DM II Hold p.o. meds Continue insulin therapy while hospitalized Monitor BGs H/O Colon cancer S/P surgery In remission as per patient Abnormal CT Incidental finding of lobular densities left breast Advised to get mammography as outpatient Hyperlipidemia Continue statin DVT Px: Lovenox SQ Code Status Full code Total Time Total Time Spent Total Time Spent (In Minutes): 50 minutes Discharge Plan Discharge Items Patient Disposition: Home - Self-Care Reason For Visit: OBS UROPATHY Discharge Diagnosis: Renal Colic Obstructive Uropathy left breast lesion Bladder Tumor S/P resection Activity: Per Instructions section Exercise/Sports: Wait until after follow-up appointment Non-emergency contact: Primary Care Provider and Urologist Call non-emergency contact if: you have any medication questions, your symptoms worsen, your pain is concerning for you and you have a fever Follow-up/Referrals: Gustavo Corbett [Primary Care Provider] - Diet: Carb Consistent or DM2 and Heart Healthy Addtl Attending Provider Instructions: Follow-up with your primary care physician in 1 week Follow-up with your urologist Dr.Stephen Rouse in 1 week for Arango catheter and Ureteral stent management --Complete the antibiotic course cefdinir for 1 week as prescribed --Get mammogram as outpatient for further evaluation of breast lesion as advised. Further recommendations as per your primary care physician based on mammogram results. Seek immediate medical attention if your symptoms reoccur or worsen Please take all medications as instructed on discharge list below. Please call if you have any questions or problems. You can reach a [facility] hospitalist on duty at [facility] 24 hours a day by calling [phone] Pending Studies at Discharge: No Stand-Alone Forms: My [facility] [place], Smoking Cessation Medications and DC Order Prescriptions: New tamsulosin 0.4 mg Capsule 0.4 mg PO HS Qty: 30 RF: 0 phenazopyridine [Pyridium] 100 mg Tablet 100 mg PO TID PRN (Reason: pain) Qty: 15 RF: 0 cefdinir 300 mg capsule 300 mg PO BID Qty: 14 RF: 0 Continued trazodone 50 mg tablet 50 mg PO HS PRN (Reason: Sleep) RF: 0 lisinopril-hydrochlorothiazide 20-12.5 mg tablet 1 tab PO BID RF: 0 aspirin [Aspir-Low] 81 mg Tablet,Delayed Release (Dr/Ec) 81 mg PO DAILY RF: 0 simvastatin 40 mg tablet 40 mg PO DAILY RF: 0 clonidine HCl 0.2 mg tablet 0.2 mg PO BID RF: 0 dorzolamide-timolol [Cosopt] 22.3-6.8 mg/mL drops 1 drp OPB BID RF: 0 mirtazapine 15 mg tablet 15 mg PO HS RF: 0 glipizide-metformin 5-500 mg tablet 2 tab PO BID RF: 0 Lumigan 0.01 % drops 1 drp OPB HS RF: 0 Discharge Orders: Discharge Order (Routine); Ordered 11/14/21 Ordered By: Vinay Steinberg/Other Patient Handouts: Managing Type 2 Diabetes, Emptying and Cleaning Your ..., Indwelling Urinary Catheter Dc, Leg Bag Care Dc Admission Data Admit Date/Time: 11/12/21 20:00 Attending Provider: Vinay Morris Admit Provider: Wagner Mejias Primary Care Provider: Gustavo Corbett Other Providers: Wagner Mejias ; Bam Rosue Other Interventions: Discharge Summary Assessment (RN) Last Done: 11/14/21 11:55
[2021-11-14] MEDS ORDERED: cefTRIAXone SODIUM 1,000 MG in DEXTROSE 5% 50 ML IV SCH (13:00)
[2021-11-18 11:31] LABS: Component 2 DNR; Source URETERAL STONE
== END 2021-11-14 14:32 | disposition home or self-care (01) ==
LOC: ED 16:16 → INTOOBSV 20:00 → 3W 20:00